=== PATIENT | male | born 1955 | race Caucasian/White ===

== ENCOUNTER 2020-02-01 16:35 | Inpatient (IN) | payer BC, MEDICARE, OTHER ==
[~2020-02-01] VITALS: Ht 182.9 cm; Wt 99.8 kg
[~2020-02-01 16:35] MED LIST: ALEVE220 M1; FUROSEMIDE40 MG PO; LACTULOSE20 GM/30 M PO; LYRICA50 MG PO; SPIRONOLACTONE25 MG PO; ULTRAM50 MG PO; XIFAXAN550 MG PO
--- NOTE | 2020-02-01 16:54 | Emergency Department Note ---
History of Present Illnes History of Present Illness Chief Complaint: Abdominal Complaints History of Present Illness This is a 64 year old male Chief Complaint Comment Patient in from home with complaints of abdominal pain and distension, nausea and vomiting that started this morning. Patient states that he didn't feel well when he woke up this morning but went to work as usual but after drinking water after his shift he began to vomit. Patient reports that after vomiting the pain subsided some. Patient does have a history of abdominal surgery including possible colon rupture with exporatory lap procedure. Patient reports that he believes when he vomited it was stool that came up. Historian: Patient Arrival Mode: Car Clinical Coder Required: No Onset (how long ago): day(s) (1) Location: Abdomen Quality: sharp Radiation: Reports non-radiation Severity: severe Onset quality: gradual Duration (how long): day(s) (1) Timing of current episode: constant Progression: worsening Chronicity: new Context: Denies recent illness, Denies recent surgery Relieving factors: none Exacerbating factors: none Associated symptoms: Reports denies other symptoms Treatments prior to arrival: none (PLACIDO KITCHEN MD) Past Medical/Family History Physician Review I have reviewed the patient's past medical and family history. Any updates have been documented here. (PLACIDO KITCHEN MD) Past Medical History Recent Fever: No Clinical Suspicion of Infectio: No New/Unexplained Change in Ment: No Other Medical History: LIVER DISEASE STAGE 4 Other Surgery: CATARACTS TIPS PROCEDURE 03/2016 (PLACIDO KITCHEN MD) Other Last Tetanus: UNK (PLACIDO KITCHEN MD) Review of Systems Review of Systems Constitutional: Reports no symptoms EENTM: Reports no symptoms Cardiovascular: Reports no symptoms Respiratory: Reports no symptoms Gastrointestinal: Reports as per HPI, Reports abdominal pain, Reports nausea, Reports vomiting Genitourinary: Reports no symptoms Musculoskeletal: Reports no symptoms Integumentary: Reports no symptoms Neurological: Reports no symptoms Psychological: Reports no symptoms Endocrine: Reports no symptoms Hematological/Lymphatic: Reports no symptoms (PLACIDO KITCHEN MD) Physical Exam Related Data Allergies: Coded Allergies: No Known Allergies (Unverified , 03/12/16) Triage Vital Signs Vital Signs Date Time Temp Pulse Resp B/P (MAP) Pulse Ox O2 Delivery O2 Flow Rate FiO2 02/01/20 16:44 98.7 115 20 131/58 100 Room Air Vital signs reviewed: Yes (PLACIDO KITCHEN MD) Physical Exam CONSTITUTIONAL Constitutional: Present well-developed, Present well-nourished HENT HENT: Present normocephalic, Present atraumatic, Present oropharynx clear/moist, Present nose normal HENT L/R: Present left ext ear normal, Present right ext ear normal EYES Eyes: Reports PERRL, Reports conjunctivae normal NECK Neck: Present ROM normal PULMONARY Pulmonary: Present effort normal, Present breath sounds normal CARDIOVASCULAR Cardiovascular: Present regular rhythm, Present heart sounds normal, Present capillary refill normal, Present normal rate GASTROINTESTINAL Abdominal: Present soft, Present distension, Present tender; Absent bowel sounds normal (Hyperactive) GENITOURINARY Genitourinary: Present exam deferred SKIN Skin: Present warm, Present dry MUSCULOSKELETAL Musculoskeletal: Present ROM normal NEUROLOGICAL Neurological: Present alert, Present oriented x 3, Present no gross motor or sensory deficits PSYCHOLOGICAL Psychological: Present mood/affect normal, Present judgement normal (PLACIDO KITCHEN MD) Results Laboratory Laboratory Laboratory Tests Test 02/01/20 16:58 White Blood Count 10.92 x10e3/uL (4.8-10.8) Red Blood Count 3.86 x10e6/uL (4.3-5.7) Hemoglobin 12.9 g/dL (14.0-18.0) Hematocrit 39.2 % (38.2-49.6) Mean Corpuscular Volume 101.6 fL (81-99) Mean Corpuscular Hemoglobin 33.4 pg (28-32) Mean Corpuscular Hemoglobin Concent 32.9 g/dL (31-35) Red Cell Distribution Width 14.2 % (11.7-14.4) Platelet Count 280 x10e3/uL (140-360) Neutrophils (%) (Auto) 81.9 % (38.7-80.0) Lymphocytes (%) (Auto) 10.3 % (18.0-39.1) Monocytes (%) (Auto) 5.7 % (4.4-11.3) Eosinophils (%) (Auto) 0.8 % (0.0-6.0) Basophils (%) (Auto) 0.9 % (0.0-1.0) Neutrophils # (Auto) 8.9 (2.1-6.9) Lymphocytes # (Auto) 1.1 (1.0-3.2) Monocytes # (Auto) 0.6 (0.2-0.8) Eosinophils # (Auto) 0.1 (0.0-0.4) Basophils # (Auto) 0.1 (0.0-0.1) Absolute Immature Granulocyte (auto 0.04 x10e3/uL (0-0.1) Sodium Level 141 mmol/L (136-145) Potassium Level 3.7 mmol/L (3.5-5.1) Chloride Level 104 mmol/L (98-107) Carbon Dioxide Level 24 mmol/L (22-29) Anion Gap 16.7 mmol/L (8-16) Blood Urea Nitrogen 11 mg/dL (7-26) Creatinine 1.48 mg/dL (0.72-1.25) Estimat Glomerular Filtration Rate 48 ML/MIN (60-) BUN/Creatinine Ratio 7 (6-25) Glucose Level 116 mg/dL (74-118) Lactic Acid Level 2.2 mmol/L (0.5-2.0) Calcium Level 9.7 mg/dL (8.4-10.2) Total Bilirubin 2.0 mg/dL (0.2-1.2) Aspartate Amino Transf (AST/SGOT) 46 IU/L (5-34) Alanine Aminotransferase (ALT/SGPT) 21 IU/L (0-55) Alkaline Phosphatase 89 IU/L (40-150) Total Protein 8.1 g/dL (6.5-8.1) Albumin 3.6 g/dL (3.5-5.0) Globulin 4.5 g/dL (2.3-3.5) Albumin/Globulin Ratio 0.8 (0.8-2.0) Lipase 37 U/L (8-78) Lab results reviewed: Yes (DAMI BALTAZAR MD) Imaging Imaging results reviewed: Yes Impressions Procedure: [id number] CT/CT ABDOMEN/PELVIS W Exam Date: 02/01/20 Exam Time: 1800 REPORT STATUS: Signed EXAM: CT Abdomen and Pelvis WITH contrast INDICATION: Abdominal pain and distention. COMPARISON: CT abdomen and pelvis on 10/13/2016. TECHNIQUE: Abdomen and pelvis were scanned utilizing a multidetector helical scanner from the lung base to the pubic symphysis after administration of IV contrast. Coronal and sagittal reformations were obtained. Routine protocol was performed. Scan was performed when during portal venous phase. IV CONTRAST: 100 mL of Isovue 370 ORAL CONTRAST: None COMPLICATIONS: None RADIATION DOSE: Total DLP: 712 mGy*cm Estimated effective dose: (DLP x 0.015 x size factor) mSv CTDIvol has been reviewed. It is below the limits set by the Radiation Protocol Committee (RPC). Dose modulation, iterative reconstruction, and/or weight based adjustment of the mA/kV was utilized to reduce the radiation dose to as low as reasonably achievable. FINDINGS: LINES and TUBES: None. LOWER THORAX: There is round atelectasis of the bilateral lung bases, left more to right. HEPATOBILIARY: The liver is diffuse hypodense compared to the spleen, consistent with diffuse hepatic diffuse hepatic steatosis. No focal hepatic lesions. No biliary ductal dilation. There is stable TIPS stent in place. GALLBLADDER: There are multiple calcified stones in the gallbladder. No wall thickening. SPLEEN: No splenomegaly. There are multifocal calcifications throughout the spleen, likely sequela of prior granulomatous infection. PANCREAS: No focal masses or ductal dilatation. ADRENALS: No adrenal nodules KIDNEYS/URETERS: Kidneys enhance symmetrically. No hydronephrosis. Bilateral renal cysts are unchanged. No stones. GI TRACT: There is circumferential wall thickening of the proximal to mid ascending colon with peripheral fat stranding and small amount of free fluid along the right paracolic gutter. There is short segment of small bowel contained within umbilical hernia with mildly dilated mid to distal small bowel.Appendix is normal. PELVIC ORGANS/BLADDER: There is small amount of dependent free fluid in the pelvis. The remaining structures within the pelvis are within normal limits. LYMPH NODES: No lymphadenopathy. VESSELS: Scattered mild arterial vascular calcifications. PERITONEUM / RETROPERITONEUM: No free air or fluid. BONES: There are degenerative changes in the spine. There is partial fusion of the bilateral sacroiliac joints. SOFT TISSUES: Bowel containing umbilical hernia as described above. IMPRESSION: 1. Short segment of small bowel contained within an umbilical hernia likely resulting in partial obstruction of the mid to distal small bowel. 2. Circumferential wall thickening of the proximal to mid ascending colon with peripheral fat stranding and small amount of free fluid along the right paracolic gutter, extending to the pelvis. This likely represents active inflammatory or infectious colitis. However, gastroenterology consultation is recommended to determine need for colonoscopy to rule out underlying malignancy after active infection/inflammation. 3. Cholelithiasis without evidence of close cystitis. 4. Hepatic steatosis with stable TIPS stent in place. Signed by: Melinda Tijerina MD on 02/01/2020 7:06 PM Dictated By: MELINDA TIJERINA MD 05 Transcribed By: RUBY on 02/01/201905 COPY TO: PLACIDO KITCHEN MD~ (DAMI BALTAZAR MD) Assessment & Plan Medical Decision Making MDM 64-year-old male with past medical history significant for abdominal surgery presents to emergency department for abdominal pain and vomiting. Examination shows postsurgical scars and abdominal distention and tenderness. Differential includes perforation of bowel versus appendicitis versus diverticulitis among others. CT abdomen and pelvis and labs ordered. Handed off to Dr. Baltazar @ 1800 (PLACIDO KITCHEN MD) MDM I SPOKE WITH DR GARCIA, DR Jason CONTE, AND DR DARBY, (DAMI BALTAZAR MD) Assessment & Plan Final Impression: (1) Abdominal pain (PLACIDO KITCHEN MD) Final Impression: (1) Abdominal pain (2) Colitis (3) Umbilical hernia (4) Partial small bowel obstruction (DAMI BALTAZAR MD) Depart Disposition: ADMITTED Last Vital Signs Date Time Temp Pulse Resp B/P (MAP) Pulse Ox O2 Delivery O2 Flow Rate FiO2 02/01/20 16:44 98.7 115 20 131/58 100 Room Air (PLACIDO KITCHEN MD) Home Meds Reported Medications Naproxen Sodium (ALEVE) 220 Mg Capsule, 2 TAB DAILY 09/29/16 Tramadol Hcl (ULTRAM) 50 Mg Tablet, 50 MG PO Q6H PRN for PAIN, TAB 09/29/16 Furosemide (FUROSEMIDE) 40 Mg Tablet, 80 MG PO Daily, #30 TAB 09/29/16 Rifaximin (XIFAXAN) 550 Mg Tablet, TAB PO BID 09/29/16 Pregabalin (LYRICA) 50 Mg Cap, 100 MG PO TID, #30 TAB 09/29/16 Spironolactone (SPIRONOLACTONE) 25 Mg Tablet, 100 MG PO BID, #60 TAB 09/29/16 Lactulose (LACTULOSE) 20 Gm/30 Ml Solution, 30 ML PO Q6H, EACH 09/29/16 PLACIDO KITCHEN MD Feb 01, 2020 16:54 DAMI BALTAZAR MD Feb 01, 2020 19:15
[2020-02-01] MEDS ORDERED: SODIUM CHLORIDE 0.9% 1000ML 1,000 ML IV SCH (17:00)
[2020-02-01] MEDS ORDERED: DIATRIZOATE MEGL/DIATRIZOA SOD 30 ML BTL PO ONE (17:03)
[2020-02-01 17:24] LABS: BASOPHILS # (AUTO) 0.1 (0.0-0.1); BASOPHILS % 0.9 % (0.0-1.0); EOSINOPHILS # (AUTO) 0.1 (0.0-0.4); EOSINOPHILS % 0.8 % (0.0-6.0); HEMATOCRIT 39.2 % (38.2-49.6); HEMOGLOBIN 12.9 g/dL (14.0-18.0); LYMPHOCYTES # (AUTO) 1.1 (1.0-3.2); LYMPHOCYTES % 10.3 % (18.0-39.1); MEAN CORPUSCULAR HEMOGLOBIN 33.4 pg (28-32); MEAN CORPUSCULAR HGB CONC 32.9 g/dL (31-35); MEAN CORPUSCULAR VOLUME 101.6 fL (81-99); MONOCYTES # (AUTO) 0.6 (0.2-0.8); MONOCYTES % 5.7 % (4.4-11.3); NEUTROPHILS # (AUTO) 8.9 (2.1-6.9); NEUTROPHILS % 81.9 % (38.7-80.0); PLATELET COUNT 280 x10e3/uL (140-360); RED BLOOD COUNT 3.86 x10e6/uL (4.3-5.7); RED CELL DISTRIBUTION WIDTH 14.2 % (11.7-14.4)
[2020-02-01] MEDS: ONDANSETRON HCL INJ 2MG/ML 2ML 2 MG/ML VIAL IV PRN (17:32)
[2020-02-01 17:49] LABS: ALBUMIN 3.6 g/dL (3.5-5.0); ALBUMIN/GLOBULIN RATIO 0.8 (0.8-2.0); ANION GAP 16.7 mmol/L (8-16); CALCIUM 9.7 mg/dL (8.4-10.2); CREATININE, SERUM 1.48 mg/dL (0.72-1.25); POTASSIUM 3.7 mmol/L (3.5-5.1)
--- NOTE | 2020-02-01 18:00 | Diagnostic Imaging Report ---
EXAMINATION: CHEST SINGLE (PORTABLE) INDICATION: Abdominal pain COMPARISON: None FINDINGS: TUBES and LINES: None. LUNGS: Normal lung volumes. There is hazy lacelike opacity at the bilateral lung bases, right more left. PLEURA: No pleural effusion or pneumothorax. HEART AND MEDIASTINUM: The cardiomediastinal silhouette is unremarkable. BONES AND SOFT TISSUES: No acute osseous lesion. Soft tissues are unremarkable. UPPER ABDOMEN: No free air under the diaphragm. IMPRESSION: Hazy lacelike opacity at the bilateral lung bases may represent atelectasis and/or multifocal pneumonia in the proper clinical context. Signed by: Santos Wellington MD on 02/01/2020 5:56 PM
[2020-02-01] MEDS ORDERED: PIPERACILLIN/TAZO 4.5 GM 100 ML IV STA (18:04)
[2020-02-01] MEDS ORDERED: IOPAMIDOL 370 MG/ML 200 ML INFUS..BTL INJ ONE (18:06)
[2020-02-01] MEDS ORDERED: SODIUM CHLORIDE 0.9% 50ML 50 ML ONE (18:06)
--- NOTE | 2020-02-01 19:09 | Diagnostic Imaging Report ---
EXAM: CT Abdomen and Pelvis WITH contrast INDICATION: Abdominal pain and distention. COMPARISON: CT abdomen and pelvis on 10/13/2016. TECHNIQUE: Abdomen and pelvis were scanned utilizing a multidetector helical scanner from the lung base to the pubic symphysis after administration of IV contrast. Coronal and sagittal reformations were obtained. Routine protocol was performed. Scan was performed when during portal venous phase. IV CONTRAST: 100 mL of Isovue 370 ORAL CONTRAST: None COMPLICATIONS: None RADIATION DOSE: Total DLP: 712 mGy*cm Estimated effective dose: (DLP x 0.015 x size factor) mSv CTDIvol has been reviewed. It is below the limits set by the Radiation Protocol Committee (RPC). Dose modulation, iterative reconstruction, and/or weight based adjustment of the mA/kV was utilized to reduce the radiation dose to as low as reasonably achievable. FINDINGS: LINES and TUBES: None. LOWER THORAX: There is round atelectasis of the bilateral lung bases, left more to right. HEPATOBILIARY: The liver is diffuse hypodense compared to the spleen, consistent with diffuse hepatic diffuse hepatic steatosis. No focal hepatic lesions. No biliary ductal dilation. There is stable TIPS stent in place. GALLBLADDER: There are multiple calcified stones in the gallbladder. No wall thickening. SPLEEN: No splenomegaly. There are multifocal calcifications throughout the spleen, likely sequela of prior granulomatous infection. PANCREAS: No focal masses or ductal dilatation. ADRENALS: No adrenal nodules KIDNEYS/URETERS: Kidneys enhance symmetrically. No hydronephrosis. Bilateral renal cysts are unchanged. No stones. GI TRACT: There is circumferential wall thickening of the proximal to mid ascending colon with peripheral fat stranding and small amount of free fluid along the right paracolic gutter. There is short segment of small bowel contained within umbilical hernia with mildly dilated mid to distal small bowel.Appendix is normal. PELVIC ORGANS/BLADDER: There is small amount of dependent free fluid in the pelvis. The remaining structures within the pelvis are within normal limits. LYMPH NODES: No lymphadenopathy. VESSELS: Scattered mild arterial vascular calcifications. PERITONEUM / RETROPERITONEUM: No free air or fluid. BONES: There are degenerative changes in the spine. There is partial fusion of the bilateral sacroiliac joints. SOFT TISSUES: Bowel containing umbilical hernia as described above. IMPRESSION: 1. Short segment of small bowel contained within an umbilical hernia likely resulting in partial obstruction of the mid to distal small bowel. 2. Circumferential wall thickening of the proximal to mid ascending colon with peripheral fat stranding and small amount of free fluid along the right paracolic gutter, extending to the pelvis. This likely represents active inflammatory or infectious colitis. However, gastroenterology consultation is recommended to determine need for colonoscopy to rule out underlying malignancy after active infection/inflammation. 3. Cholelithiasis without evidence of close cystitis. 4. Hepatic steatosis with stable TIPS stent in place. Signed by: Santos Wellington MD on 02/01/2020 7:06 PM
--- OUTSIDE RECORDS SUMMARY | 2020-02-01 19:33 | XMS REPORT | Continuity of Care Document ---
Author Author [facility] t Organization [facility] Address [address] [place] [address] Phone Unavailable Care Team Providers Care Zipper Setter Name Role Phone Asked, Pcp No PCP Unavailable Vince Perera Attphys Unavailable Raphael VILLAREAL, Madyson Attphys Unavailable Kaylin TILLMAN, Donald Manuel Attphys Jhon TILLMAN, Leo Attphys Eva TILLMAN, Shannan Wallace Attphys [phone] Kian PERERA, Maureen Attphys Unavailable Re WEIGHER AND MIXER, Shanique Attphys Unavailable Chiara Delacruz Attphys Unavailable Niki PERERA, Franny Attphys Unavailable BENJI BROWN Attphys Unavailable TRAVIS, DR JULIANA BAH Attphys Unavailable KEVINBENJI Admphys Unavailable WOODY, DR JULIANA BAH Admphys Unavailable RADHA, SONIA Admphys Unavailable Payers Payer Name Policy Type Policy Number Effective Date Expiration Date S [place] [employer] TRANSPLANT MEDICAREOPTUM [place] MEDIC ARE [id number] 2018-PresentTransplant [id number] 2018 00:0 0:00 Kd Umaña [facility] [id number] HMO [id number] 2017 00:00:00 Kd Umaña Problems Condition Name Condition Details Condition Category Status Onset Date Resolution Date Last Treatment Date Treating Clinician Comments Source Viral gastroenteritis Viral gastroenteritis Problem Active 201 11-27-01 00:00:00 LAURA Christinaridarshan (LUF/SAWYER/SA) Awaiting liver transplant Awaiting liver transplant Disease Ac tive 2016-09-03 00:00:[address] S/P TIPS (transjugular intrahepatic portosystemic shun t) 04/08/16 S/P TIPS (transjugular intrahepatic portosystemic shunt) 04/08/16 Disease Act hebert 2016-05-07 00:00:00 Kd Umaña Ascites Ascites Problem Active 2016-02-28 00:00:00 [facility] (LUF/SAWYER/SA) Portal hypertension Portal hypertension Disease Active 2015-12-16 00:00 :00 Kd Umaña Protein calorie malnutrition Protein calorie malnutrition Disease Active 2015-12-16 00:00:00 Kd Umaña Peripheral neuropathy Peripheral neuropathy Disease Active 201 10-01-21 00:00:00 Kd Manriquez t Hepatic cirrhosis due to chronic hepatitis C infection Hepatic cirrhosis due to chronic hepatitis C infection Disease Active 2015-12-02 00:00:00 Kd Umaña Ascites Ascites Disease Active 2015-12-02 00:00:00 Kd Umaña Abnormal CXR Abnormal CXR Problem Active [facility] 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 Family History Family Member Diagnosis Comments Start Date Stop Date Source Paternal aunt Cancer Kd garcia Social History Social Habit Start Date Stop Date Quantity Comments Source History of tobacco use Cigarette Smoker Kd Umaña Sex Assigned At Nenita Umaña Cigarettes smoked current (pack per day) - Reported 00:00:00 2019-11-16 00:00:00 Kd Umaña Tobacco use and exposure 2019-11-16 00:00:00 2019-11-16 00:00:00 Cristiankaran norman used Kd Umaña Alcohol intake 2019-11-16 00:00:00 2019-11-16 00:00:00 Current non-drinker of alcohol (finding) dK Umaña Tobacco Comment 2015-12-02 00:00:00 2015-12-02 00:00:00 started as a teen Kd Umaña Smoking Status Start Date Stop Date Source Current every day smoker 2019-11-16 00:00:00 Nenita Umaña Medications Ordered Medication Name Filled Medication Name Start Date Stop Da te Current Medication? Ordering Clinician Indication Dosage Frequency Signature (SIG) Comments Components Source pregabalin (Lyrica) 50 MG capsule 2019-11-17 00:00:00 2020 23:59:00 Yes Neuropathy 50mg Q.5D Take 1 capsule ( 50 mg total) by mouth 2 (two) times a day. Kd Umaña carvediloL (COREG) 6.25 MG tablet 2019-11-16 14:34:44 Yes 6.25mg Q.5D Take 6.25 mg by mouth 2 (two) times a day with meals. Kd Umaña lactulose 10 gram/15 mL (15 mL) solution 2019-11-16 14:34:43 Yes 20g Q.[id number] Take 20 g by mouth 3 (three) times a day. Kd Umaña varenicline (CHANTIX) 1 mg tablet 2019-11-16 14:34:31 2019 00:00:00 No 1mg Q.5D Take 1 mg by gavi th 2 (two) times a day. Take with full glass of water. Kd Umaña pregabalin (Lyrica) 50 MG capsule 2019-11-16 00:00:00 2019 00:00:00 No Neuropathy 50mg Q.5D Take 1 capsule (50 mg total) by mouth 2 (two) times a day. Kd Umaña ACETAMINOPHEN (TYLENOL EXTRA STRENGTH ORAL) 2017-10-21 15:29:06 Yes Take by mouth. Kd Umaña amLODIPine (NORVASC) 2.5 mg tablet 2017-10-19 00:00:00 Yes 2.5mg QD 2.5 mg daily. Kd Umaña losartan (COZAAR) 25 MG tablet 2017-10-19 00:00:00 Yes 25mg QD 25 mg daily. Kd Umaña Gabapentin Gabapentin Yes Reji Kelli 1 capsule [facility] Coreg Coreg Yes Reji Kelli 1 tablet C [facility] Losartan Potassium Losartan Potassium Yes Reji Kelli 1 tablet [facility] duloxetine 30 MG Delayed Release Oral Capsule duloxeti ne 30 MG Delayed Release Oral Capsule Yes 30mg QD [facility] (LUF/SAWYER/SA) Furosemide 40 MG Oral Tablet Furosemide 40 MG Oral Tablet Yes 40mg QD [facility] ([facility]/) Ondansetron Ondansetron Yes 4mg QID C [facility] ([facility]/) pregabalin 150 MG Oral Capsule pregabalin 150 MG Oral Capsule Yes 150mg BID [facility] ([facility] rifaximin 550 MG Oral Tablet rifaximin 550 MG Oral Tablet Y es 550mg BID [facility] Spironolactone 100 MG Oral Tablet Spironolactone 100 MG Oral Tablet Yes 100mg [facility] ([facility] varenicline 1 MG Oral Tablet varenicline 1 MG Oral Tablet Yes 1mg BID [facility] ([facility]) Immunizations Ordered Immunization Name Filled Immunization Name Date Status Comments Source Seasonal, trivalent, recombinant, inject able influenza vaccine, preservative free Seasonal, trivalent, recombinant, inject able influenza vaccine, preservative free 2017-02-09 00:00:[address] [facility] ([facility]) Vital Signs Vital Name Observation Time Observation Value Comments Source Systolic blood pressure 2019-11-16 14:00:00 173 mm[Hg] Kd Umaña Diastolic blood pressure 2019-11-16 14:00:00 71 mm[Hg] Kd Umaña Heart rate 2019-11-16 14:00:00 80 /min Kd Umaña Body temperature 2019-11-16 14:00:00 35.94 Larisa Kana juliocesar Hinduism Respiratory rate 2019-11-16 14:00:00 18 /min Kana juliocesar Hinduism Body height 2019-11-16 14:00:00 182.9 cm Kd Umaña Body weight 2019-11-16 14:00:00 100.2 kg Kd Umaña BMI 2019-11-16 14:00:00 29.96 kg/m2 Kd Umaña Oxygen saturation in Arterial blood by Pulse oximetry 11-15 14:00:00 97 /min Kd Umaña BP Systolic 2017-07-26 18:27:00 177 mm[Hg] [facility] ([facility]/) BP Diastolic 2017-07-26 18:27:00 86 mm[Hg] [facility] (LUF/SAWYER/SA) Body Temperature 2017-07-26 14:46:00 98 F [facility] (LUF/[place]WYER/SA) Respiratory Rate 2017-07-26 14:46:00 20 /min [facility] (LUF/[place]WYER/SA) O2% BldC Oximetry 2017-07-26 14:46:00 97 % [facility] (LUF/[place]WYER/SA) Height 2017-07-26 14:46:00 72 in [facility] (LUF/SAWYER/SA) Weight Measured 2017-07-26 14:46:[address] [facility] Nahum lopez [facility] (LUF/[place]WYER/SA) BMI (Body Mass Index) 2017-07-26 14:46:00 26.2 [facility] (LUF/SAWYER/SA) Body Temperature 2017-04-11 21:00:00 98 F [facility] (LUF/SAWYER/SA) Respiratory Rate 2017-04-11 21:00:00 20 /min [facility] (LUF/[place]WYER/SA) O2% BldC Oximetry 2017-04-11 21:00:00 98 % [facility] (LUF/SAWYER/SA) BP Systolic 2017-04-11 21:00:00 174 mm[Hg] [facility] (LUF/[place]WYER/SA) BP Diastolic 2017-04-11 21:00:00 80 mm[Hg] [facility] (LUF/[place]WYER/SA) Height 2017-04-11 16:52:00 72 in [facility] (LUF/SAWYER/SA) Weight Measured 2017-04-11 16:52:[address] [facility] Nahum [facility] (LUF/SAWYER/SA) BMI (Body Mass Index) 2017-04-11 16:52:00 24.6 [facility] (LUF/SAWYER/SA) Procedures Procedure Date / Time Performed Performing Clinician [facility] e MRI ABDOMEN W WO CONTRAST 2019-11-16 13:35:00 Kaleb Ewing TTE COMPLETE, WO CONTRAST, W AGITATED SALINE ([id number]) 2019-10 12:12:00 Fartun Cook Kd Umaña BASIC METABOLIC PANEL 2019-11-16 09:30:00 EgwiKaleb roque IJeremias Umaña HEPATIC FUNCTION PANEL 2019-11-16 09:30:00 Kaleb Ewing I. Willian Umaña PROTHROMBIN TIME WITH INR 2019-11-16 09:30:00 EgKaleb gupta Hinduism PARTIAL THROMBOPLASTIN TIME (PTT) 2019-11-16 09:30:00 EgSrini gupta Hinduism HC COMPLETE BLD COUNT W/AUTO DIFF 2019-11-16 09:30:00 EgSrini gupta Hinduism ALPHA FETOPROTEIN 2019-11-16 09:30:00 Kaleb Ewing Hinduism MAGNESIUM LEVEL 2019-11-16 09:30:00 Kaleb Ewing ethodist PHOSPHORUS LEVEL 2019-11-16 09:30:00 Kaleb Ewing I. Kd Umaña ESTIMATED GFR 2019-11-16 09:30:00 EgKaleb gupta ethodist MRI ABDOMEN W WO CONTRAST 2019-06-05 19:30:00 Kaleb Ewing Hinduism TTE COMPLETE, WO CONTRAST, W DOPPLER ([id number]) 2019-05-25 15:0 0:00 Leo Rothman MRI ABDOMEN W WO CONTRAST 2019-05-25 12:00:00 Leo Rothman POC CREATININE 2019-05-25 10:57:00 Leo Rothman ethodist ESTIMATED GFR 2019-05-25 10:57:00 Leo Rothman ethodist BASIC METABOLIC PANEL 2019-05-25 09:50:00 Leo Rothman HEPATIC FUNCTION PANEL 2019-05-25 09:50:00 Leo Rothman PROTHROMBIN TIME WITH INR 2019-05-25 09:50:00 Leo Rothman PARTIAL THROMBOPLASTIN TIME (PTT) 2019-05-25 09:50:00 Leo Rothman HC COMPLETE BLD COUNT W/AUTO DIFF 2019-05-25 09:50:00 Leo Rothman ALPHA FETOPROTEIN 2019-05-25 09:50:00 Leo Rothman MAGNESIUM LEVEL 2019-05-25 09:50:00 Leo Rothman ethodist PHOSPHORUS LEVEL 2019-05-25 09:50:00 Leo Rothman ESTIMATED GFR 2019-05-25 09:50:00 Leo Rothman ethodist BASIC METABOLIC PANEL 2019-03-28 00:00:00 Leo Rothman HEPATIC FUNCTION PANEL 2019-03-28 00:00:00 Leo Rothman PROTHROMBIN TIME WITH INR 2019-03-28 00:00:00 Leo Rothman PARTIAL THROMBOPLASTIN TIME (PTT) 2019-03-28 00:00:00 Leo Rothman CBC WITH PLATELET AND DIFFERENTIAL 2019-03-28 00:00:00 Leo Penn Procedure on colon [facility] ([facility]/SA) TREAT HUMERUS FRACTURE [facility] ([facility]) Plan of Care Planned Activity Planned Date Details Comments Source Future Scheduled Test 2019-11-25 00:00:00 INFLUENZA VACCINE [code = INFLUENZA VACCINE] Kd Umaña Future Scheduled Test 2006 00:00:00 COLONOSCOPY SCREEN ING [code = COLONOSCOPY SCREENING] Kd Umaña Future Scheduled Test 2006 00:00:00 SHINGLES VACCINES (#1) [code = SHINGLES VACCINES (#1)] Kd Umaña Encounters Start Date/Time End Date/Time Encounter Type Admission Type Att[facility] Care Department Encounter ID Source 2019-11-16 00:00:00 2019-11-16 00:00:00 Outpatient JOYCE EWING MA [facility] [id number] Kd Umaña 2019-11-16 00:00:00 2019-11-16 00:00:00 Outpatient Sukhdev ROTHMAN [facility] [id number] Kd Umaña 2019-11-16 00:00:00 2019-11-16 00:00:00 Outpatient TOYA COOK [facility] [id number] [facility] 2019-11-16 00:00:00 2019-11-16 00:00:00 Outpatient JOYCE EWING MA [facility] [id number] [facility] 2019-06-05 00:00:00 2019-06-05 00:00:00 Outpatient JOYCE EWING MA [facility] [id number] [facility] 2019-05-25 00:00:00 2019-05-25 00:00:00 Outpatient ANKOMA-SEY, V ICTOR [facility] [id number] [facility] 2019-05-25 00:00:00 2019-05-25 00:00:00 Outpatient ANKOMA-SEY, V ICTOR [facility] [id number] [facility] 2019-03-30 13:06:00 2019-03-30 13:06:00 Outpatient [facility] ty [place] [id number] [facility]-03-29 12:25:00 2019-03-29 12:25:00 Outpatient [facility] [id number] [facility] 2019-03-28 10:30:00 2019-03-28 10:30:00 Outpatient [facility] ty [place] [id number] [facility] 2017-08-05 13:49:00 2017-08-05 23:59:00 PAIN IN LEFT UPPER ARM 3 AMBEROLVIN Lacy JULIANA [facility], [address] [place] [address] [facility] [phone] [facility] (LUF/[place]YER/SA) 2017-07-26 14:37:00 2017-07-26 20:55:00 VIRAL INTESTINAL INFECTION UNSPEC 1 RADHASONIA JJ [facility], [address], [place], [place] [address] [facility] [id number] [facility] (LUF /[place]/SA) 2017-04-11 16:35:00 2017-04-11 21:40:00 UNS FX SHFT HUM LT ARM INIT CLOS FX E SONIA GARCIA [facility], [address] [facility] [place], [place] [address] [facility] [id number] [facility] (LUF /[place]WYER/SA) Results Test Description Test Time Test Comments Results Result Comments Source CT ABDOMEN/PELVIS W 2020-02-01 18:40:00 [facility] [address] [address] Patient Name: STEPH PINK MR #: [id number] : 1955 Age/Sex: 64/M Req #: [id number] Adm Physician: Ordered by: Placido Perera MD Report #: [id number] Location: ER Room/Bed: Procedure: [id number] CT/CT ABDOMEN/PELVIS W Exam Date: 02/01/20 Exam Time: 1800 REPORT STATUS: Signed EXAM: CT Abdomen and Pelvis WITH contrast INDICATION: Abdominal pain and distention. COMPARISON: CT abdomen and pelvis on 10/13/2016. TECHNIQUE: Abdomen and pelvis were scanned utilizing a multidetector helical scanner from the lung base to the pubic symphysis after administration of IV contrast. Coronal and sagittal reformations were obtained. Routine protocol was performed. Scan was performed when during portal venous phase. IV CONTRAST: 100 mL of Isovue 370 ORAL CONTRAST: None COMPLICATIONS: None RADIATION DOSE: Total DLP: 712 mGy*cm Estimated effective dose: (DLP x 0.015 x size factor) mSv CTDIvol has been reviewed. It is below the limits set by the Radiation Protocol Committee (RPC). Dose modulation, iterative reconstruction, and/or weight based adjustment of the mA/kV was utilized to reduce the radiation dose to as low as reasonably achievable. FINDINGS: LINES and TUBES: None. LOWER THORAX: There is round atelectasis of the bilateral lung bases, left more to right. HEPATOBILIARY: The liver is diffuse hypodense compared to the spleen, consistent with diffuse hepatic diffuse hepatic steatosis. No focal hepatic lesions. No biliary ductal dilation. There is stable TIPS stent in place. GALLBLADDER: There are multiple calcified stones in the gallbladder. No wall thickening. SPLEEN: No splenomegaly. There are multifocal calcifications throughout the spleen, likely sequela of prior granulomatous infection. PANCREAS: No focal masses or ductal dilatation. ADRENALS: No adrenal nodules KIDNEYS/URETERS: Kidneys enhance symmetrically. No hydronephrosis. Bilateral renal cysts are unchanged. No stones. GI TRACT: There is circumferential wall thickening of the proximal to mid ascending colon with peripheral fat stranding and small amount of free fluid along the right paracolic gutter. There is short segment of small bowel contained within umbilical hernia with mildly dilated mid to distal small bowel.Appendix is normal. PELVIC ORGANS/BLADDER: There is small amount of dependent free fluid in the pelvis. The remaining structures within the pelvis are within normal limits. LYMPH NODES: No lymphadenopathy. VESSELS: Scattered mild arterial vascular calcifications. PERITONEUM / RETROPERITONEUM: No free air or fluid. BONES: There are degenerative changes in the spine. There is partial fusion of the bilateral sacroiliac joints. SOFT TISSUES: Bowel containing umbilical hernia as described above. IMPRESSION: 1. Short segment of small bowel contained within an umbilical hernia likely resulting in partial obstruction of the mid to distal small bowel. 2. Circumferential wall thickening of the proximal to mid ascending colon with peripheral fat stranding and small amount of free fluid along the right paracolic gutter, extending to the pelvis. This likely represents active inflammatory or infectious colitis. However, gastroenterology consultation is recommended to determine need for colonoscopy to rule out underlying malignancy after active infection/inflammation. 3. Cholelithiasis without evidence of close cystitis. 4. Hepatic steatosis with stable TIPS stent in place. Signed by: Melinda Tijerina MD on 02/01/2020 7:06 PM Dictated By: MELINDA TIJERINA MD 05 Transcribed By: RUBY on 02/01/201905 COPY TO: PLACIDO PERERA MD CHEST SINGLE (PORTABLE) 2020-02-01 17:50:[address] [address] Patient Name: STEPH PINK MR #: [id number] : 1955 Age/Sex: 64/M Req #: [id number] Adm Physician: Ordered by: Placido Perera MD Report #: [id number] Location: ER Room/Bed: Procedure: [id number] DX/CHEST SINGLE (PORTABLE) Exam Date: 02/01/20 Exam Time: 1720 REPORT STATUS: Signed EXAMINATION: CHEST SINGLE (PORTABLE) INDICATION: Abdominal pain COMPARISON: None FINDINGS: TUBES and LINES: None. LUNGS: Normal lung volumes. There is hazy lacelike opacity at the bilateral lung bases, right more left. PLEURA: No pleural effusion or pneumothorax. HEART AND MEDIASTINUM: The cardiomediastinal silhouette is unremarkable. BONES AND SOFT TISSUES: No acute osseous lesion. Soft tissues are unremarkable. UPPER ABDOMEN: No free air under the diaphragm. IMPRESSION: Hazy lacelike opacity at the bilateral lung bases may represent atelectasis and/or multifocal pneumonia in the proper clinical context. Signed by: Melinda Tijerina MD on 02/01/2020 5:56 PM Dictated By: MELINDA TIJERINA MD 55 Transcribed By: RUBY on 02/01/201755 COPY TO: PLACIDO PERERA MD Transthoracic Echocardiogram Complete, (w Contrast, St rain and 3D if needed) 2019-11-17 12:09:00 Interface, Radiology Results In - 11/17/2019 12:09 PM CDT Echocardiography Report [address] [address] Pat.Name: STEPH PINK Pat.ID: [id number] .Date: 11/16/2019 Refer.MD: FARTUN COOK MD Exam Time: 10:44:00 AM Study Type:Routine Echo Height: 72in Weight: 220lb BSA: 2.22 m2 Age: 4 1955,64Y Sex: MALE BP: 172/75 HR: 71 bpm Sonogrphr: RAGHAVENDRA Aragon, RVS Pat. Stat.:Outpatient Room: [facility] Study Status:Final Echo Event ID:[id number] Order ID: [id number] Reason for Study:Pre-Liver TransplantHistory / Clinical:Cirrhosis Procedures: 2D Echo, Colorflow Doppler, Strain, Intravenous SalineContrastRace: C SUMMARY: LV EF is normal. Estimated EF is 65-69%RV systolic function is normal.No intracardiac shunt detected.Normal diastolic function adjusted for age; normal LV fillingpressures.Estimated PA systolic pressure is 30 mmHg, assuming a mean RAP of 5mmHg. FINDINGS: LV: LV size is normal. There is mild eccentric LV hypertrophy. LV EF is normal. Overall wall motion is normal. Estimated EF is 65-69%RV: RV size is normal. RV systolic function is normal.LA: LA volume is severely enlarged.RA: RA size is normal.AO: Aortic root diameter is normal.LIMA: No pericardial effusion.Cntrst: No intracardiac shunt detected.AV: No structural AV abnormalities noted.MV: No structural MV abnormalities noted. Mild mitral regurgitation. PV: No structural PV abnormalities noted.TV: No structural TV abnormalities noted. A trace of tricuspid regurgitation Lee: Normal diastolic function adjusted for age; normal LV filling pressures.Other: Estimated PA systolic pressure is 30 mmHg, assuming a mean RAP of 5 mmHg. MEASUREMENTS: 2DParasternal Long [place] Ao An 2.5 cm LVPWd 1 cm Ao Rtd 3.3 cm Index 1.5 cm/m2 LA Ds 5.7 cm IVSd 1.2 cm RWT 0.35 LVIDd 5.9 cm Index 2.6 cm/m2 LV Mass 272 g (122-174)* LVIDs 3.6 cm LVM Index 123 g/m2 LV%fs 39 % LVOT 2.3 cm LA Sng Plane LA Area 31 cm2 (8.8- 23.4)* LA Vol 117 ml Index 53 ml/m2 LA LngAx 6.9 cm RA Sng Plane RA Vol 75 ml Index 34 ml/m2 RA LngAx 6.6 cm RA Area 24 cm2 (8.3-19.5)*LVOT LVOT Area 4 cm2 DOPPLERLVOT Stroke Vol & Cardiac Out LVOT TVI 26 cm HR 76 bpm LVOT LVOT SV 108 ml LVOT CO 8.2 l/min SVi 49 ml/m2 LVOT CI 3.7 l/m/m2IVRT IVRT 83 msec Signed 11/17/2019 12:09 PMMoMD Kd Warern Hinduism MRI Abdomen W Wo Contrast 2019-11-16 14:11:44 Interface, Radiology Results 11/16/2019 2:14 PM CDTEXAMINATION: MRI ABDOMEN W WO CONTRASTCLINICAL HISTORY: Z76.82 Awaiting organ transplant status, B18.2 Chronic viral hepatitis C, HCC ScreenTECHNIQUE: Multiplanar multisequence MR images of the abdomen were obtained pre- and post dynamic intravenous administration of Gadolinium.COMPARISON: None.FINDINGS:1.The liver is cirrhotic and demonstrates diffuse hepatic steatosis. 6 mm ill-defined focus of hyperenhancement (series 6 image 138) without delayed washout, intrinsic T1 or T2 signal abnormality, or diffusion restriction may represent a small vascular shunt. Attention on follow-up imaging is recommended. There is no suspicious liver mass.2.A TIPS stent is patent. The portal, splenic, and superior mesenteric veins are patent.3.The spleen, pancreas, and adrenals are normal.4.There are several stones in the gallbladder.5.Several benign bilateral renal cysts are present. This includes a hemorrhagic or proteinaceous 2.5 cm right renal cyst. There is no hydronephrosis.6.The stomach and imaged bowel loops are unremarkable. A ventral midline abdominal hernia contains a few retained but unobstructed small bowel loops.7.There is trace ascites.8.Chronic rounded atelectasis in the left lower lobe and trace left pleural fluid, and mild chronic atelectasis or scarring in the right lower lobe, are again noted.9.There is no aortic ectasia or aneurysm.10.No significant marrow abnormality is seen.IMPRESSION: No evidence of HCC. Subcentimeter nonspecific hypervascular focus in the right hepatic lobe may be a benign perfusion anomaly and can be followed. Technically LI RADS category 3.[id number] [facility] Echocardiogram complete w contrast and 3D if needed 2019-05-27 2 3:03:00 Interface, Radiology Results In - 05/27/2019 11:03 PM [facility] Echocardiography Report [id number]Name: STEPH PINK Pat.ID: [id number] .Date: 05/25/2019 Exam Time: 2:09:00 PM Study Type:Routine Echo Height: 72in Weight: 220lb BSA: 2.22 m2 Age: 4 1955,63Y Sex: MALE BP: 181/78 HR: 77 bpm Sonogrphr: RAGHAVENDRA Garcia Pat. Stat.:Outpatient Room: [facility] 26 Study Status:Final Echo Event ID:[id number] Order ID: [id number] Reason for Study:PRE LIVER EVAL History / Clinical:Cirrhosis Procedures: 2D Echo, Colorflow Doppler, Intravenous Saline ContrastRace: C SUMMARY: LV EF is normal.Estimated EF is 65-69%RV systolic function is normal. --------FINDINGS: LV: LV size is normal. There is mild concentric LV hypertrophy. LV EF is normal. Overall wall motion is normal. Estimated EF is 65-69%RV: RV size is normal. RV systolic function is normal.LA: LA volume is moderately enlarged.RA: RA size is normal.AO: Aortic root diameter is normal.LIMA: No pericardial effusion.Cntrst: No intracardiac shunt detected.AV: No structural AV abnormalities noted.MV: Focal calcification of mitral leaflets. Mild mitral regurgitation. PV: No structural PV abnormalities noted.TV: No structural TV abnormalities noted.Other: Insufficient TR jet to estimate PA systolic pressure. MEASUREMENTS:--------- 2DParasternal Long [place] Ao An 1.5 cm LVPWd 1.3 cm Ao Rtd 3.1 cm Index 1.4 cm/m2 LA Ds 4.8 cm IVSd 1.1 cm RWT 0.47 LVIDd 5.5 cm Index 2.5 cm/m2 LV Mass 272 g (122-174) LVIDs 3.4 cm LVM Index 123 g/m2 LV%fs 38 % LA Sng Plane LA Area 27 cm2 (8.8-23.4) LA Vol 100 ml Index 45 ml/m2 LA LngAx 5.9 cm LVOT Stroke Vol LVOT 2 cm LVOT LVOT Area 3.1 cm2 DOPPLERLVOT Stroke Vol LVOT TVI 32 cm LVOT CI 3.5 l/m/m2 LVOT SV 100 ml HR 77 bpm LVOT CO 7.7 l/min LVOT SVi 45 ml/m2 Signed 05/27/2019 11:03 Víctor Campos M.D. Kd Umaña POC creatinine 2019-05-25 11:00:18 Test Item POC creatinine (test code = 04067-5) 1.1 mg/dl 0.7-1.2 Reconditioner Name: Nataliya Helmice ID: [id number] Kd UmañaXR CHEST 2 PA [id number] 11:36:47PA and lateral chest:History: Persistent coughThere are no prior chest films for comparison. There is a vaguely definedrounded opacity in the left base along the cardiac margin. It appears to projectposteriorly on the lateral view. Review of prior CT scan from 2018 showsbilateral pleural effusions and this structure may be of pleural origin.Diagnostic considerations include rounded atelectasis, loculated effusion andlung mass. Followup chest CT is recommended. There is limit edatelectasis/scarring in the right lung base. Mild pleural thickening is presen ton the lower lateral chest wall and the costophrenic angles.Cardiac size is wit hin normal limits. No vascular congestion is noted. The bonythorax appears intac t.Impression:1. Faintly defined opacity in the left lung base projects posterior ly on thelateral view and could be of pleural or parenchymal origin. Followup est CT isrecommended.2. Limited basilar pleural thickening and right basilar ate lectasis/scarring.This final report was electronically signed by Dr Darvin eldridge MD 03/20/201911:30 AMDictated By: DARVIN CAVANAUGHDate: 03/20/2019 11:30MRI UPPER ARM W/O [id number] 14:34:34"If patient is claustrophobic, contact ordering ysician for additional instructions."MRI of the left arm without contrast:History: FractureMultiple magnetic resonance imaging of the left arm was performed withoutcontrast.There is a transverse fracture of the midshaft humerus. There is apex lateralangulation at the fracture site with approximately 1/2 shaft width medialdisplacement of the distal fragment. There is associated marrow edema along bothends of the fracture. Soft tissue signal likely representing callus formation isnoted particularly along the medial and posterior aspect of the fracture and toa lesser extent anteriorly. No sign ificant callus is visualized laterally. Thereis some residual edema in the muscu lature posterior to the fracture. Fluidsignal is noted between the ends of the f racture.Incidental note is made of a left pleural effusion. This was noted on re cent CTscan of July 26, 2017.Impression: Angulated fracture of the midshaft hum erus with changes of earlyhealing as noted. A left pleural effusion is incidenta lly again noted.This final report was electronically signed by Dr Darvin peña MD 08/06/20172:28 PMDictated By: DARVIN CAVANAUGHDate: 08/06/2017 14:34CT ABDOMEN/PELVIS W/O [id number] 20:20:52NPO 4 hours. Do not withhold meds Procedure: CT ABDOMEN/PELVIS W/O CONTRASTExam Date: 07/26/2017Ordering Provider: DEEPA STERLINGClinical Indication: abd pain, nausea and vomitingTECHNIQUE: 5 mm collimation axial images obtained from the diaphragm to thelevel of the pubic symphysis without nonionic intravenous contrast.RADIATION DOSE:Total DLP: 945 m Gy*cmEstimated effective dose: (DLP x 0.015 x size factor) mSvCTDIvol has been r eviewed. It is below the limits set by the RadiationProtocol Committee (RPC).COM PARISON: Abdominal ultrasound 02/28/16.ABDOMEN FINDINGS:Lung Bases: Posterior lay ering pleural effusions measure 5.7 cm on the rightatrium 0.7 cm on the left. Th ere is mild prominence of the parietal pleurasuggestive of chronicity. There is bibasilar atelectasis. Calcified granulomataare present in the right hilum and r ight lung base. The heart is normal in size.Right cardiophrenic lymph nodes are prominent, measuring up to 19 mm..Liver: A TIPS shunt is present. The liver is d ecreased in attenuation. Calcifiedgranulomata are present. The capsule is lobula red consistent with cirrhosis. Noevidence of mass on this unenhanced exam.Gallbl adder: Present contains multiple calcified gallstones measuring up to 10mm.. No ductal dilatation.Pancreas: Normal attenuation without mass.Spleen: Measures 13 cm in length and contains multiple calcified granulomata.Adrenal Glands: No ruth dence for mass.Kidneys:Right Kidney: No hydronephrosis. A cyst in the hilum caden sures 2.3 cm. A cyst inthe posterior upper pole measures 3 cm.. No hydronephros is. No calculi.Left Kidney: No renal calculus. No cortical mass or hydronephro sis.Lymph Nodes: Periportal lymph nodes measure up to 10 mm. Shotty periaortic l ymphnodes measure less than 10 mm.No free fluid or fluid collection.PELVIS FINDI NGS:Bowel: Small Bowel: Normal in caliber with normal wall thickness.Large Bowel : High attenuating material in the right colon could be barium ormedication. No large bowel dilatation or mural thickening..Appendix: Present and is normal.Blad omar: Circumferential mural thickening is present. No ureteral dilatation.Prostat e gland is mildly enlarged with central calcifications.Lymph Nodes: No enlarged mesenteric, pelvic, or inguinal lymph nodes.No free fluid or fluid collection.Richard che: There are moderate degenerative changes of the spine without compressionfra cture or listhesis. There are no lytic or blastic lesions.Soft tissues: Unremark able.IMPRESSION:1. Cirrhosis and TIPS. No splenomegaly or ascites. Decreased attenuation ofthe liver is suggestive of steatosis.2. Moderate sized bilateral pleural effusions and bibasilar atelectasis. Thesepleural effusions may be chron ic.3. Healed granulomatous inflammation.4. No evidence of bowel obstruction or i nflammation.5. Diffuse bladder wall thickening suggestive of chronic outlet obst ruction fromprostate hypertrophy.6. Cholelithiasis. No biliary ductal dilatation .7. Right renal cysts. No obstructive uropathy.This final report was electronic ally signed by Dr Vicky Sanchez MD 07/26/20178:14 PMDictated By: ESTRELLA SANCHEZ IADate: 07/26/2017 20:20URINALYSIS WITH [id number] 17:46:00* Test Item Value Reference Range Interpretation Comments Color (test code = UCOLR) Yellow Clarity (test code = UCLAR) Clear Glucose (test code = UGLUC) NEGATIVE NEGATIVE N Bilirubin (test code = UBILI) SMALL NEGATIVE A Ketones (test code = UKET) TRACE NEGATIVE A Specific [place] (test code = USPGR) >=1.030 1.005-1.030 A Blood (test code = UBLD) LARGE NEGATIVE A PH (test code = UPH) 6.0 4.5-8.0 A Protein (test code = UPROT) 30 NEGATIVE A Urobilinogen (test code = U UROB) 0.2 >0.2 N Nitrite (test code = UNITR) NEGATIVE NEGATIVE N Leukocyte Esterase (test code = ULEUK) NEGATIVE NEGATIVE N WBC (test code = WBCUR) 0-3 0-5 A RBC (test code = RBCUR) 60-75 0-5 A Epithial Cells (test code = U EPI) 0-3 0-10 A Mucous (test code = UMUC) Trace None Seen A Bacteria (test code = UBACT) Trace None Seen,Trace N Crystals Urine (test code = URCRYS) Trace Amorphous Sediment None S een A Urine Casts (test code = UR CAST) Few Hyaline Casts None Seen A Urine Misc (test code = UR MISC) Few Yeast None Seen A LIPASE, [id number] 15:53:00* Test Item Value Reference Range Interpretation Comments Lipase (test code = LIPA) 116 U/L 8-223 [id number] 15:53:00* Test Item Value Reference Range Interpretation Comments Glucose (test code = GLU) 101 mg/dl 75-110 BUN (test code = BUN) 12.0 mg/dl 6.0-17.0 Creatinine (test code = CREA) 0.9 mg/dl 0.4-1.2 Sodium (test code = NA) 147 mmol/l 137-145 H Potassium (test code = K) 4.3 mmol/l 3.5-5.0 Chloride (test code = CL) 104 mmol/l 98-107 CO2 (test code = CO2) 31 mmol/l 22-30 H Calcium (test code = CALC) 9.9 mg/dl 8.4-10.2 T Protein (test code = TP) 9.2 gm/dl 5.1-8.7 H Albumin (test code = ALB) 4.3 gm/dl 3.5-4.6 A/G Ratio (test code = AGRAT) 0.9 % 1.1-2.2 L AST (SGOT) (test code = AST) 73 U/L 11-36 H ALT (SGPT) (test code = ALT) 20 U/L 11-40 Alkaline Phos (test code = ALKP) 134 U/L 47-114 H Total Bilirubin (test code = TBIL) 1.5 mg/dl 0.2-1.2 H Globulin (test code = GLOBU) 4.9 gm/dl 2.3-3.5 H Anion Gap (test code = GAP) 12 Calcium, Corrected (test code = CALCCORR) 9.7 mg/dl 8.4-10.2 Various formulas exist for corrected serum calcium results, each yielding different values. This corrected result was based on the formula: Corrected Calcium = SerumCalcium + [0.8 * ( 4 - SerumAlbumin)] EGFR if (test code = EGFRAA) >60 mL/min/1.73m\\S\\2 EGFR if Non- (test code = EGFRNA) >60 mL/min/1.73m\\ S\\2 Estimated Glomerular Filtration Rate (eGFR) Reference Intervals Decision Points for 18 years and older and average body mass: >= 60 Does not exclude kidney disease. 30 - 59 Suggests moderate chronic kidney disease and indicates the need for further investigation including assessment of proteinuria and cardiovascular factors. < 30 Usually indicates a need for referral for assessment and management of chronic kidney failure. CBC WITH AUTO [id number] 15:49:00* Test Item Value Reference Range Interpretation Comments WBC (test code = WBC) 7.43 10\\S\\3/ul 4.80-10.80 RBC (test code = RBC) 4.72 10\\S\\6/ul 4.70-6.10 Hemoglobin (test code = HGB) 14.0 gm/dl 14.0-18.0 Hematocrit (test code = HCT) 44.8 % 42.0-50.0 MCV (test code = MCV) 94.9 fL 80.0-94.0 H MCH (test code = MCH) 29.7 pg 27.0-31.0 MCHC (test code = MCHC) 31.3 gm/dl 33.0-37.0 L RDW (test code = RDWVC) 16.0 % 11.5-14.5 H Platelet (test code = PLT) 243 10\\S\\3/ul 130-400 MPV (test code = MPV) 9.4 fL 7.4-10.4 A "NOT M EASURED" RESULTS ARE DISPLAYED WHEN THE INSTRUMENT HAS A SUPPRESSED OR UNREPORTABLE RESULT. THIS WILL MOST OFTEN HAPPEN WITH THE MPV WHEN THERE IS AN ABNORMAL PLATELET DISTRIBUTION DUE TO A CRITICAL LOW VALUE OR PLATELET CLUMPING. THE RDW MAY BE SUPPRESSED IF THERE ARE MULTIPLE PEAKS PRESENT ON THE RBC HISTOGRAM. IN THIS CASE, A MANUAL REVIEW OF THE SLIDE WILL BE PERFORMED, AND RBC MORPHOLOGY WILL BE NOTED ON THE REPORT. NE% (test code = NE) 56.1 % 42.0-75.0 LY% (test code = LY) 29.6 % 13.0-42.0 MO% (test code = MO) 9.6 % 4.0-14.0 EO% (test code = EO) 3.5 % 1.0-3.0 H BA% (test code = BA) 1.1 % 1.0-3.0 IG% (test code = IG%) 0.1 % 0.0-0.4 [id number] 20:13:00* Test Item Value Reference Range Interpretation Comments Glucose (test code = GLU) 82 mg/dl 75-110 BUN (test code = BUN) 14.0 mg/dl 6.0-17.0 Creatinine (test code = CREA) 1.0 mg/dl 0.4-1.2 Sodium (test code = NA) 143 mmol/l 137-145 Potassium (test code = K) 4.8 mmol/l 3.5-5.0 Chloride (test code = CL) 113 mmol/l 98-107 H CO2 (test code = CO2) 24 mmol/l 22-30 Anion Gap (test code = GAP) 7 Calcium (test code = CALC) 9.2 mg/dl 8.4-10.2 T Protein (test code = TP) 8.2 gm/dl 5.1-8.7 Albumin (test code = ALB) 4.0 gm/dl 3.5-4.6 A/G Ratio (test code = AGRAT) 1.0 % 1.1-2.2 L AST (SGOT) (test code = AST) 54 U/L 11-36 H ALT (SGPT) (test code = ALT) 30 U/L 11-40 Alkaline Phos (test code = ALKP) 139 U/L 47-114 H Total Bilirubin (test code = TBIL) 0.7 mg/dl 0.2-1.2 Globulin (test code = GLOBU) 4.2 gm/dl 2.3-3.5 H Calcium, Corrected (test code = CALCCORR) 9.2 mg/dl 8.4-10.2 Various formulas exist for corrected serum calcium results, each yielding different values. This corrected result was based on the formula: Corrected Calcium = SerumCalcium + [0.8 * ( 4 - SerumAlbumin)] EGFR if (test code = EGFRAA) >60 mL/min/1.73m\\S\\2 EGFR if Non- (test code = EGFRNA) >60 mL/min/1.73m\\ S\\2 Estimated Glomerular Filtration Rate (eGFR) Reference Intervals Decision Points for 18 years and older and average body mass: >= 60 Does not exclude kidney disease. 30 - 59 Suggests moderate chronic kidney disease and indicates the need for further investigation including assessment of proteinuria and cardiovascular factors. < 30 Usually indicates a need for referral for assessment and management of chronic kidney failure. PT AND [id number] 20:13:00* Test Item Value Reference Range Interpretation Comments Protime (test code = PT) 11.6 seconds 9.0-11.8 INR (test code = INR) 1.1 0.9-1.1 INR re sults are intended ONLY to monitor Oral Anticoagulant therapy in stablized patients. The INR Therapeutic Range is 2.0 - 3.0 Patients with a mechanical heart, the INR Range is 2.5 - 3.5 [id number] 20:13:00* Test Item Value Reference Range Interpretation Comments aPTT (test code = PTT) 29.4 seconds 25.3-35.7 CBC WITH AUTO [id number] 20:03:00* Test Item Value Reference Range Interpretation Comments WBC (test code = WBC) 11.80 10\\S\\3/ul 4.80-10.80 H RBC (test code = RBC) 3.89 10\\S\\6/ul 4.70-6.10 L Hemoglobin (test code = HGB) 12.4 gm/dl 14.0-18.0 L Hematocrit (test code = HCT) 38.6 % 42.0-50.0 L MCV (test code = MCV) 99.2 fL 80.0-94.0 H MCH (test code = MCH) 31.9 pg 27.0-31.0 H MCHC (test code = MCHC) 32.1 gm/dl 33.0-37.0 L RDW (test code = RDWVC) 15.2 % 11.5-14.5 H Platelet (test code = PLT) 202 10\\S\\3/ul 130-400 MPV (test code = MPV) 8.9 fL 7.4-10.4 A "NOT M EASURED" RESULTS ARE DISPLAYED WHEN THE INSTRUMENT HAS A SUPPRESSED OR UNREPORTABLE RESULT. THIS WILL MOST OFTEN HAPPEN WITH THE MPV WHEN THERE IS AN ABNORMAL PLATELET DISTRIBUTION DUE TO A CRITICAL LOW VALUE OR PLATELET CLUMPING. THE RDW MAY BE SUPPRESSED IF THERE ARE MULTIPLE PEAKS PRESENT ON THE RBC HISTOGRAM. IN THIS CASE, A MANUAL REVIEW OF THE SLIDE WILL BE PERFORMED, AND RBC MORPHOLOGY WILL BE NOTED ON THE REPORT. NE% (test code = NE) 67.9 % 42.0-75.0 LY% (test code = LY) 21.0 % 13.0-42.0 MO% (test code = MO) 8.2 % 4.0-14.0 EO% (test code = EO) 1.7 % 1.0-3.0 BA% (test code = BA) 0.8 % 1.0-3.0 L IG% (test code = IG%) 0.4 % 0.0-0.4 XR HUMERUS MIN 2 [id number] 19:03:19Left humerus - 2 viewsHISTORY: Pain.COMPARISON: Left humerus, 2 views, 04/11/2017FINDINGS:Bones:Interval reduction of the acute comminuted fracture of the mid diaphysis of theleft humerus. The major fracture fragments are in near-anatomic alignment.Minimal posterior displacement of the distal fracture fragments is present. Noexpansile lytic or sclerotic lesion.Joints:The joint spaces are well-maintained. No dislocation.Soft tissues:The soft tissues appear unremarkable.IMPRE SSION:Comminuted fracture of the mid diaphysis of the left humerus.This final re port was electronically signed by Dr Steph Poole MD 04/11/20176:57 PMDictated B y: Iris POOLEte: 04/11/2017 19:03XR HUMERUS MIN 2 [id number] 18:20:15 Left humerus - 2 viewsHISTORY: Pain.COMPARISON: None available.FINDINGS:Bones:A cute comminuted fracture of the mid diaphysis of the left humerus with medialang ulation of the distal fracture fragments.No expansile lytic or sclerotic lesion. Joints:The joint spaces are well-maintained. No dislocation.Soft tissues:The so ft tissues appear unremarkable.IMPRESSION:Comminuted fracture of the mid diaphys is of the left humerus.This final report was electronically signed by Dr Steph de león MD 04/11/20176:13 PMDictated By: Michael POOLE: 04/11/2017 18:20
--- OUTSIDE RECORDS SUMMARY | 2020-02-01 19:33 | XMS REPORT | Clinical Summary ---
Author Author Kd Jain Organization [facility] Address Unknown Phone Unavailable Care Team Providers Care Machinery Cleaner Name Role Phone Asked, No Pcp PCP Unavailable Allergies No Known Active Allergies Medications End Date Status Medication Sig Dispensed Refills Start Date Active ACETAMINOPHEN (TYLENOL Take by 0 EXTRA STRENGTH ORAL) mouth. Active amLODIPine (NORVASC) 2.5 2.5 mg daily. 2 10/19 mg tablet 8 Active losartan (COZAAR) 25 MG 25 mg daily. 2 tablet 8 Active lactulose 10 gram/15 mL Take 20 g by 0 (15 mL) solution mouth 3 (three) times a day. Active carvediloL (COREG) 6.25 Take 6.25 mg 0 MG tablet by mouth 2 (two) times a day with meals. 11/16/2020 Active pregabalin (Lyrica) 50 MG Take 1 180 capsule 3 capsuleIndications: capsule (50 0 Awaiting liver mg total) by transplant, Neuropathy mouth 2 (two) times a day. 11/16/2019 Discontinued (Therapy comple red) varenicline (CHANTIX) 1 Take 1 mg by 0 mg tablet mouth 2 (two) times a day. Take with full glass of water. 11/17/2019 Discontinued (Reorder) pregabalin (Lyrica) 50 MG Take 1 180 capsule 3 capsuleIndications: capsule (50 0 Awaiting liver mg total) by transplant, Neuropathy mouth 2 (two) times a day. 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 05/07/2016 Portal hypertension 12/16/2015 Protein calorie malnutrition 12/16/2015 Peripheral neuropathy 12/16/2015 Hepatic cirrhosis due to chronic hepatitis C infectio n 12/02/2015 Ascites 12/02/2015 Encounters Care Team Description Date Type Specialty Madyson Lim RN Awaiting liver transplant (Primary Dx); Hepatic cirrhosis due to chronic hepatitis C infection (HCC) 12/26/2019 Orders Only Transplant Madyson Lim RN Awaiting liver transplant; Neuropathy 11/17/2019 Orders Only Transplant Leo Ferreira MD Hepatic cirrhosis due to chronic hepatit is C infection (HCC) (Primary Dx); Awaiting liver transplant; Neuropathy 11/16/2019 Office Visit Transplant Kaleb Ewing MD Awaiting liver transplant; Hepatic cirrhosis due to chronic hepatitis C infection (HCC) 11/16/2019 Hospital Radiology Encounter Fartun Cook MD Awaiting liver transplant; Hepatic cirrhosis due to chronic hepatitis C infection (HCC); Preop cardiovascular exam 11/16/2019 Hospital Procedural Cardiolo gy Encounter 11/16/2019 Travel Maureen Langston MA Appointment 10/11/2019 Documentation Cardiology Madyson Lim RN Awaiting liver transplant (Primary Dx); Hepatic cirrhosis due to chronic hepatitis C infection (HCC); Preop cardiovascular exam 09/25/2019 Orders Only Transplant Shanique Grimaldo LCSW 09/05/2019 Documentation Transplant Kaleb Ewing MD Awaiting liver transplant; Hepatic cirrhosis due to chronic hepatitis C infection (HCC) 06/05/2019 Hospital Radiology Encounter Chiara Delacruz 05/31/2019 Telephone Transplant Kaleb Ewing MD Awaiting liver transplant (Primary Dx); Hepatic cirrhosis due to chronic hepatitis C infection (HCC) 05/25/2019 Office Visit Transplant Leo Ferreira MD Hepatic cirrhosis due to chronic hepatit is C infection (HCC); Awaiting liver transplant 05/25/2019 Hospital Procedural Cardiolo gy Encounter Leo Ferreira MD Hepatic cirrhosis due to chronic hepatit is C infection (HCC); Awaiting liver transplant 05/25/2019 Hospital Radiology Encounter Madyson Lim RN Meld Score Update Notification (MELD sco re 10, recert due 03/28/20) 03/29/2019 Documentation Transplant Madyson Lim RN Hepatic cirrhosis due to chronic hepatit is C infection (HCC) (Primary Dx); Awaiting liver transplant 03/28/2019 Orders Only Transplant Madyson Lim RN Hepatic cirrhosis due to chronic hepatit is C infection (HCC) (Primary Dx); Awaiting liver transplant 03/28/2019 Orders Only Transplant Franny Prince MA Speak with coord 03/28/2019 Telephone Transplant Madyson Lim RN Hepatic cirrhosis due to chronic hepatit is C infection (HCC) (Primary Dx); Awaiting liver transplant 02/13/2019 Orders Only Transplant after 01/31/2019 Surgical History Surgery Date Site/Laterality Comments TONSILLECTOMY EYE SURGERY glaucoma surgery CARDIAC CATHETERIZATION 01/16/2016 N/A Proced ure: Cv right heart cath selective coronary lv; Surgeon: Nathaniel Rao MD; Location: [facility] [employer] Developer Invasive Location; Servic e: Cardiovascular; Laterality: N/A; EXPLORATORY LAPAROTOMY Medical History Medical History Date Comments Hypertension not on any meds Shortness of breath on exertion Ascites Eating disorder decreased appetite due to a scites Hepatitis C STD (sexually transmitted disease) Chlamydia as a teen Edema feet and ankles Cirrhosis (HCC) Family History Medical History Relation Name Comments Cancer Paternal Aunt Relation Name Status Comments Paternal Aunt Social History Date Tobacco Use Types Packs/Day Years Used Current Every Day Smoker Cigarettes 1 Smokeless Tobacco: Never Used Comments: started as a teen Drinks/Week oz/Week Comments Alcohol Use No Sex Assigned at Date Recorded Not on file Last Filed Vital Signs Reading Time Taken Comments Vital Sign 173/71 11/16/2019 2:00 PM CDT Blood Pressure 80 11/16/2019 2:00 PM CDT Pulse 35.9 C (96.7 F) 11/16/2019 2:00 PM CDT Temperature 18 11/16/2019 2:00 PM CDT Respiratory Rate 97% 11/16/2019 2:00 PM CDT Oxygen Saturation - - Inhaled Oxygen Concentration 100 kg (220 lb 14.4 oz) 11/16/2019 2:00 PM CDT Weight 182.9 cm (6') 11/16/2019 2:00 PM CDT Height 29.96 11/16/2019 2:00 PM CDT Body Mass Index Plan of Treatment Care Team Description Date Type Specialty Leo Ferreira MD [address] [address] 02/22/2020 Lab Transplant Leo Ferreira MD [address] [id number] [phone] 02/22/2020 Appointment Radiology Kaleb Ewing MD [address] [address] [phone] 02/22/2020 Office Visit Transplant Health Maintenance Due Date Last Done Comments COLONOSCOPY SCREENING 2006 SHINGLES VACCINES (#1) 2006 INFLUENZA VACCINE 11/25/2019 Procedures Comments Procedure Name Priority Date/Time Associated Diag nosis MRI ABDOMEN W WO CONTRAST Routine 11/16/2019 Awai ting liver transplant 1:35 PM CDT Hepatic cirrhosis due to chronic hepatitis C infection (HCC) TTE COMPLETE, WO Routine 11/16/2019 Awaiting live r transplant CONTRAST, W AGITATED 12:12 PM CDT Hepatic cirrhosi s due to SALINE (23545) chronic hepatitis C infection (HCC) Preop cardiovascular exam ESTIMATED GFR Routine 11/16/2019 9:30 AM CDT PHOSPHORUS LEVEL Routine 11/16/2019 Awaiting live r transplant 9:30 AM CDT Hepatic cirrhosis due to chronic hepatitis C infection (HCC) MAGNESIUM LEVEL Routine 11/16/2019 Awaiting liver transplant 9:30 AM CDT Hepatic cirrhosis due to chronic hepatitis C infection (HCC) ALPHA FETOPROTEIN Routine 11/16/2019 Awaiting neha er transplant 9:30 AM CDT Hepatic cirrhosis due to chronic hepatitis C infection (HCC) HC COMPLETE BLD COUNT Routine 11/16/2019 Awaiting liver transplant W/AUTO DIFF 9:30 AM CDT Hepatic cirrhosis d ue to chronic hepatitis C infection (HCC) PARTIAL THROMBOPLASTIN Routine 11/16/2019 Awaitin g liver transplant TIME (PTT) 9:30 AM CDT Hepatic cirrhosis d ue to chronic hepatitis C infection (HCC) PROTHROMBIN TIME WITH INR Routine 11/16/2019 Awai ting liver transplant 9:30 AM CDT Hepatic cirrhosis due to chronic hepatitis C infection (HCC) HEPATIC FUNCTION PANEL Routine 11/16/2019 Awaitin g liver transplant 9:30 AM CDT Hepatic cirrhosis due to chronic hepatitis C infection (HCC) BASIC METABOLIC PANEL Routine 11/16/2019 Awaiting liver transplant 9:30 AM CDT Hepatic cirrhosis due to chronic hepatitis C infection (HCC) MRI ABDOMEN W WO CONTRAST Routine 06/05/2019 Awai ting liver transplant 7:30 PM DIRECTIONAL BORE OPERATOR Hepatic cirrhosis due to chronic hepatitis C infection (HCC) TTE COMPLETE, WO Routine 05/25/2019 Hepatic cirrh osis due to CONTRAST, W DOPPLER 3:00 PM DIRECTIONAL BORE OPERATOR chronic hepatitis C (82024) infection (HCC) Awaiting liver transplant MRI ABDOMEN W WO CONTRAST Routine 05/25/2019 Hepa tic cirrhosis due to 12:00 PM DIRECTIONAL BORE OPERATOR chronic hepatitis C infection (HCC) Awaiting liver transplant ESTIMATED GFR Routine 05/25/2019 10:57 AM DIRECTIONAL BORE OPERATOR POC CREATININE Routine 05/25/2019 10:57 AM DIRECTIONAL BORE OPERATOR ESTIMATED GFR Routine 05/25/2019 9:50 AM DIRECTIONAL BORE OPERATOR PHOSPHORUS LEVEL Routine 05/25/2019 Hepatic cirrh osis due to 9:50 AM DIRECTIONAL BORE OPERATOR chronic hepatitis C infection (HCC) Awaiting liver transplant MAGNESIUM LEVEL Routine 05/25/2019 Hepatic cirrho sis due to 9:50 AM DIRECTIONAL BORE OPERATOR chronic hepatitis C infection (HCC) Awaiting liver transplant ALPHA FETOPROTEIN Routine 05/25/2019 Hepatic cirr hosis due to 9:50 AM DIRECTIONAL BORE OPERATOR chronic hepatitis C infection (HCC) Awaiting liver transplant HC COMPLETE BLD COUNT Routine 05/25/2019 Hepatic cirrhosis due to W/AUTO DIFF 9:50 AM DIRECTIONAL BORE OPERATOR chronic hepatitis C infection (HCC) Awaiting liver transplant PARTIAL THROMBOPLASTIN Routine 05/25/2019 Hepatic cirrhosis due to TIME (PTT) 9:50 AM DIRECTIONAL BORE OPERATOR chronic hepatitis C infection (HCC) Awaiting liver transplant PROTHROMBIN TIME WITH INR Routine 05/25/2019 Hepa tic cirrhosis due to 9:50 AM DIRECTIONAL BORE OPERATOR chronic hepatitis C infection (HCC) Awaiting liver transplant HEPATIC FUNCTION PANEL Routine 05/25/2019 Hepatic cirrhosis due to 9:50 AM DIRECTIONAL BORE OPERATOR chronic hepatitis C infection (HCC) Awaiting liver transplant BASIC METABOLIC PANEL Routine 05/25/2019 Hepatic cirrhosis due to 9:50 AM DIRECTIONAL BORE OPERATOR chronic hepatitis C infection (HCC) Awaiting liver transplant CBC WITH PLATELET AND Routine 03/28/2019 Hepatic cirrhosis due to DIFFERENTIAL 12:00 AM DIRECTIONAL BORE OPERATOR chronic hepatitis C infection (HCC) Awaiting liver transplant PARTIAL THROMBOPLASTIN Routine 03/28/2019 Hepatic cirrhosis due to TIME (PTT) 12:00 AM DIRECTIONAL BORE OPERATOR chronic hepatitis C infection (HCC) Awaiting liver transplant PROTHROMBIN TIME WITH INR Routine 03/28/2019 Hepa tic cirrhosis due to 12:00 AM DIRECTIONAL BORE OPERATOR chronic hepatitis C infection (HCC) Awaiting liver transplant HEPATIC FUNCTION PANEL Routine 03/28/2019 Hepatic cirrhosis due to 12:00 AM DIRECTIONAL BORE OPERATOR chronic hepatitis C infection (HCC) Awaiting liver transplant BASIC METABOLIC PANEL Routine 03/28/2019 Hepatic cirrhosis due to 12:00 AM DIRECTIONAL BORE OPERATOR chronic hepatitis C infection (HCC) Awaiting liver transplant after 01/31/2019 Results * MRI Abdomen W Wo Contrast (11/16/2019 1:35 PM CDT) Only the most recent of 3 results within the time period is included. Specimen Narrative Performed At [facility] EXAMINATION: MRI ABDOMEN W WO CONTRAS T CLINICAL HISTORY: Z76.82 Awaiting org an transplant status, B18.2 Chronic viral hepatitis C, HCC Screen TECHNIQUE: Multiplanar multisequence MR images of the abdomen were obtained pre- and post dynamic intravenous administra tion of Gadolinium. COMPARISON: None. FINDINGS: 1.The liver is cirrhotic and demonstrat es diffuse hepatic steatosis. 6 mm ill-defined focus of hyperenhancement ( series 6 image 138) without delayed washout, intrinsic T1 or T2 signal abno rmality, or diffusion restriction may represent a small vascular shunt. Attention on follow-up imaging i s recommended. There is no suspicious liver mass. 2.A TIPS stent is patent. The portal, s plenic, and superior mesenteric veins are patent. 3.The spleen, pancreas, and adrenals ar e normal. 4.There are several stones in the gallb ladder. 5.Several benign bilateral renal cysts are present. This includes a hemorrhagic or proteinaceous 2.5 cm right renal cys t. There is no hydronephrosis. 6.The stomach and imaged bowel loops ar e unremarkable. A ventral midline abdominal hernia contains a few retaine d but unobstructed small bowel loops. 7.There is trace ascites. 8.Chronic rounded atelectasis in the le ft lower lobe and trace left pleural fluid, and mild chronic atelectasis or scarring in the right lower lobe, are again noted. 9.There is no aortic ectasia or aneurys m. 10.No significant marrow abnormality is seen. IMPRESSION: No evidence of HCC. Subcentimeter nonsp ecific hypervascular focus in the right hepatic lobe may be a benign perfusion anomaly and can be followed. Technically LI RADS category 3. [id number] Procedure Note Hm Interface, Radiology Results Incoming - 11/16/2019 2:14 PM CDT EXAMINATION: MRI ABDOMEN W WO CONTRAST CLINICAL HISTORY: Z76.82 Awaiting organ transplant status, B18.2 Chronic viral hepatitis C, HCC Screen TECHNIQUE: Multiplanar multisequence MR images of the abdomen were obtained pre- and post dynamic intravenous administration of Gadolinium. COMPARISON: None. FINDINGS: 1.The liver is cirrhotic and demonstrate s diffuse hepatic steatosis. 6 mm ill- defined focus of hyperenhancement (series 6 image 138) without delayed washout, intrinsic T1 or T2 signal abnormality, or diffusion restriction may represent a small vascular shunt. Attention on follow-up imaging is recommended. There is no suspicious liver mass. 2.A TIPS stent is patent. The portal, sp lenic, and superior mesenteric veins are patent. 3.The spleen, pancreas, and adrenals are normal. 4.There are several stones in the gallbl adder. 5.Several benign bilateral renal cysts a re present. This includes a hemorrhagic or proteinaceous 2.5 cm right renal cyst. There is no hydronephrosis. 6.The stomach and imaged bowel loops are unremarkable. A ventral midline abdominal hernia contains a few retained but unobstructed small bowel loops. 7.There is trace ascites. 8.Chronic rounded atelectasis in the lef t lower lobe and trace left pleural fluid, and mild chronic atelectasis or scarring in the right lower lobe, are again noted. 9.There is no aortic ectasia or aneurysm . 10.No significant marrow abnormality is seen. IMPRESSION: No evidence of HCC. Subcentimeter nonspecific hypervascular focus in the right hepatic lobe may be a benign perfusion anomaly and can be followed. Technically LI RADS category 3. [id number] Performing Organization Address City/State/ZIP Code P maira Number [facility] [address] [place] [address] * Transthoracic Echocardiogram Complete, (w Contrast, Strain and 3D if needed) (11/16/2019 12:12 PM CDT) Specimen Narrative Performed At [facility] Echo cardiography Report [id number] [facility], [facility] [address], [place] [address] Pat.Name: STEPH PINK Pat.ID: [id number] .Date: 11/16/2019 Refer.MD: FARTUN COOK MD Exam Time: 10:44:00 AM Study Type:Routine Echo Height: 72in Weight: 220lb BSA: 2.22 m2 Age: 5 1955,64Y Sex: MALE BP: 172/75 HR: 71 bpm Sonogrphr: RAGHAVENDRA Aragon RVS Pat. Stat.:Outpatient Room: [facility] Study Status:Final Echo Event ID:[id number] Order ID: [id number] Reason for Study:Pre-Liver Transplant History / Clinical:Cirrhosis Procedures: 2D Echo, Colorflow Doppler, Strain, Intravenous Saline Contrast Race: C SUMMARY: LV EF is normal. Estimated EF is 65-69% RV systolic function is normal. No intracardiac shunt detected. Normal diastolic function adjusted for age; normal LV filling pressures. Estimated PA systolic pressure is 30 mm Hg, assuming a mean RAP of 5 mmHg. FINDINGS: LV: LV size is normal. There i s mild eccentric LV hypertrophy. LV EF is normal. Overall wall motion is normal. Estimated EF is 65-69% RV: RV size is normal. RV syst olic function is normal. LA: LA volume is severely enla rged. RA: RA size is normal. AO: Aortic root diameter is no rmal. LIMA: No pericardial effusion. Cntrst: No intracardiac shunt detect ed. AV: No structural AV abnormali ties noted. MV: No structural MV abnormali ties noted. Mild mitral regurgitation. PV: No structural PV abnormali ties noted. TV: No structural TV abnormali ties noted. A trace of tricuspid regurgitation Lee: Normal diastolic function a djusted for age; normal LV filling pressures. Other: Estimated PA systolic press ure is 30 mmHg, assuming a mean RAP of 5 mmHg. MEASUREMENTS: 2D Parasternal Long [place] Ao An 2.5 cm LVPWd 1 cm Ao Rtd 3.3 cm Index 1.5 cm/m2 LA Ds 5.7 cm IVSd 1.2 cm RWT 0.35 LVIDd 5.9 cm Index 2.6 cm/m2 LV Mass 272 g (122-1 74)* LVIDs 3.6 cm LVM Index 123 g/m LV%fs 39 % LVOT 2.3 cm LA Sng Plane LA Area 31 cm (8.8-2 3.4)* LA Vol 117 ml Index 53 ml/m2 LA LngAx 6.9 cm RA Sng Plane RA Vol 75 ml Index 34 ml/m2 RA LngAx 6.6 cm RA Area 24 cm (8.3-1 9.5)* LVOT LVOT Area 4 cm DOPPLER LVOT Stroke Vol & Cardiac Out LVOT TVI 26 cm HR 76 bpm LVOT LVOT SV 108 ml LVOT CO 8.2 l/min SVi 49 ml/m LVOT CI 3.7 l/m/m IVRT IVRT 83 msec Signed 11/17/2019 12:09 PM Shane Zaidi MD Procedure Note Interface, Radiology Results In - 11/17/2019 12:09 PM CDT Echocardiography Report [id number] [place] [address] Pat.Name: STEPH PINK Pat.ID: [id number] St.Date: 11/16/2019 Refer.MD: FARTUN COOK MD Exam Time: 10:44:00 AM Study Type:Routine Echo Height: 72in Weight: 220lb BSA: 2.22 m2 Age: 5 1955,64Y Sex: MALE BP: 172/75 HR: 71 bpm Sonogrphr: ARGHAVENDRA Aragon, RVS Pat. Stat.:Outpatient Room: [facility] Study Status:Final Echo Event ID:[id number] Order ID: [id number] Reason for Study:Pre-Liver Transplant History / Clinical:Cirrhosis Procedures: 2D Echo, Colorflow Doppler, Strain, Intravenous Saline Contrast Race: C SUMMARY: LV EF is normal. Estimated EF is 65-69% RV systolic function is normal. No intracardiac shunt detected. Normal diastolic function adjusted for age; normal LV filling pressures. Estimated PA systolic pressure is 30 mmHg, assuming a mean RAP of 5 mmHg. FINDINGS: LV: LV size is normal. There is mild eccentric LV hypertrophy. LV EF is normal. Overall wall motion is normal. Estimated EF is 65-69% RV: RV size is normal. RV systolic function is normal. LA: LA volume is severely enlarged. RA: RA size is normal. AO: Aortic root diameter is normal. LIMA: No pericardial effusion. Cntrst: No intracardiac shunt detected. AV: No structural AV abnormalities noted. MV: No structural MV abnormalities noted. Mild mitral regurgitation. PV: No structural PV abnormalities noted. TV: No structural TV abnormalities noted. A trace of tricuspid regurgitation Lee: Normal diastolic function adjusted for age; normal LV filling pressures. Other: Estimated PA systolic pressure is 30 mmHg, assuming a mean RAP of 5 mmHg. MEASUREMENTS: 2D Parasternal Long [place] Ao An 2.5 cm LVPWd 1 cm Ao Rtd 3.3 cm Index 1.5 cm/m2 LA Ds 5.7 cm IVSd 1.2 cm RWT 0.35 LVIDd 5.9 cm Index 2.6 cm/m2 LV Mass 272 g (122-174)* LVIDs 3.6 cm LVM Index 123 g/m LV%fs 39 % LVOT 2.3 cm LA Sng Plane LA Area 31 cm (8.8-23.4)* LA Vol 117 ml Index 53 ml/m2 LA LngAx 6.9 cm RA Sng Plane RA Vol 75 ml Index 34 ml/m2 RA LngAx 6.6 cm RA Area 24 cm (8.3-19.5)* LVOT LVOT Area 4 cm DOPPLER LVOT Stroke Vol & Cardiac Out LVOT TVI 26 cm HR 76 bpm LVOT LVOT SV 108 ml LVOT CO 8.2 l/min SVi 49 ml/m LVOT CI 3.7 l/m/m IVRT IVRT 83 msec Signed 11/17/2019 12:09 PM Shane Zaidi MD Performing Organization Address City/State/ZIP Code P [facility] Number [facility] [address] [place] [address] * Estimated GFR (11/16/2019 9:30 AM CDT) Only the most recent of 3 results within the time period is included. [facility] Estimated GFR 57 (A) mL/min/1.73 m2 [facility] Comment: [facility] Interpretation G1 >=90 Normal or high G2 60-89 Mildly decreased G3a 45-59 Mildly to moderately decreased G3b 30-44 Moderately to severely decreased G4 15-29 Severely decreased G5 <15 Kidney failure The eGFR was calculated using the Chronic Kidney Disease Epidemiology Collaboration (CKD-EPI) equation. Interpretation is based on recommendations of the National Kidney Foundation-Kidney Disease Outcomes Quality Initiative (NKF-KDOQI) published in 2014. Specimen Performing Organization Address City/State/ZIP Code P maira Number [address] CHRISTIAN [address] [place] [address] * Alpha fetoprotein (11/16/2019 9:30 AM CDT) Only the most recent of 2 results within the time period is included. [facility] Alpha 1.9 0.0 - 8.3 ng/mL [facility] fetoprotein Comment: CHRISTIAN The Lise 8000 AFP immunoassay [facility] was used. Results obtained with different assay methods or kits should not be used interchangeably and may be different. Specimen Serum Performing Organization Address City/[facility] P maira Number [address] [place]RISTIAN [address] [place] [address] * Partial thromboplastin time, activated (11/16/2019 9:30 AM CDT) Only the most recent of 3 results within the time period is included. [facility] PTT 34.4 23.0 - 36.0 sec [facility] Comment: CHRISTIAN PTT therapeutic range for HOSPITAL unfractionated heparin is 61.0-112.0 seconds which corresponds to Anti-Xa 0.3-0.7 U/ml. Specimen Blood Performing Organization Address City/[facility] P maira Number [address] CHRISTIAN [address] [place] [address] * Prothrombin time with INR (11/16/2019 9:30 AM CDT) Only the most recent of 3 results within the time period is included. Prothrombin 15.2 (H) 11.5 - 14.5 sec [facility] INR 1.2 TR[facility] Comment: CHRISTIAN [facility] Ratio (INR) is a therapeutic monitoring tool for patients who are stable on oral anticoagulant therapy. An INR of 2.0-3.0 is suggested for deep vein thrombosis/pulmonary embolism. Specimen Blood Performing Organization Address City/State/ZIP Code P maira Number [facility] DEPARTMENT OF [address] [place] [address] PATHOLOGY AND GENOMIC MEDICINE [facility] [address] * CBC with platelet and differential (11/16/2019 9:30 AM CDT) Only the most recent of 3 results within the time period is included. WBC 7.78 4.50 - 11.00 k/uL [facility] RBC 3.83 (L) 4.40 - 6.00 m/uL [facility] HGB 12.8 (L) 14.0 - 18.0 g/dL [facility] HCT 39.2 (L) 41.0 - 51.0 % [facility] MCV 102.3 (H) 82.0 - 100.0 fL [facility] MCH 33.4 27.0 - 34.0 pg [facility] MCHC 32.7 31.0 - 37.0 g/dL [facility] RDW - SD 52.7 37.0 - 55.0 fL [facility] MPV 10.2 8.8 - 13.2 fL [facility] Platelet count 180 150 - 400 k/uL [facility] Nucleated RBC 0.00 /100 WBC [facility] Neutrophils 44.9 39.0 - 69.0 % [facility] Lymphocytes 35.7 25.0 - 45.0 % [facility] Monocytes 9.9 0.0 - 10.0 % [facility] Eosinophils 7.8 (H) 0.0 - 5.0 % [facility] Basophils 1.3 (H) 0.0 - 1.0 % [facility] Immature 0.4Comment: "Immature 0.0 - 1.0 % [facility] granulocytes granulocytes" (promyelocytes, METHOD IST myelocytes, metamyelocytes) [facility] Specimen Blood Performing Organization Address City/[facility] Code P maira Number [facility] DEPARTMENT OF [address] [place] [address] PATHOLOGY AND GENOMIC MEDICINE [address] * Phosphorus level (11/16/2019 9:30 AM CDT) Only the most recent of 2 results within the time period is included. Phosphorus 3.6 2.4 - 4.5 mg/dL [facility] Specimen Blood Performing Organization Address City/[facility] P maira Number [facility] DEPARTMENT OF [address] [place] [address] PATHOLOGY AND GENOMIC MEDICINE [address] * Magnesium level (11/16/2019 9:30 AM CDT) Only the most recent of 2 results within the time period is included. Magnesium 1.3 (L) 1.6 - 2.4 mg/dL [facility] Specimen Blood Performing Organization Address [facility] P maira Number [facility] DEPARTMENT OF [address] [place] [address] PATHOLOGY AND GENOMIC MEDICINE [address] * Hepatic function panel (11/16/2019 9:30 AM CDT) Only the most recent of 3 results within the time period is included. Albumin 3.3 (L) 3.5 - 5.0 g/dL [facility] Total bilirubin 1.0 0.0 - 1.2 mg/dL [facility] Bilirubin 0.4 (H) 0.0 - 0.3 mg/dL [place] direct [facility] Alkaline 98 40 - 129 U/L [place] phosphatase [facility] Protein 7.9 6.3 - 8.3 g/dL [place] Comment: [facility] [place] 4.6-7.0 g/dL 1 week 4.4-7.6 g/dL 7 months-1year 5.1-7.3 g/dL 1-2 years 5.6-7.5 g/dL >3 years 6.0-8.0 g/dL 18-150 6.3-8.3 g/dL ALT 14 5 - 50 U/L [facility] AST 27 10 - 50 U/L [facility] Specimen Blood Performing Organization Address [facility] P maira Number [facility] DEPARTMENT OF [address] [place] [address] PATHOLOGY AND GENOMIC MEDICINE [address] * Basic metabolic panel (11/16/2019 9:30 AM CDT) Only the most recent of 3 results within the time period is included. Sodium 138 135 - 148 mEq/L [facility] Potassium 4.2 3.5 - 5.0 mEq/L [facility] Chloride 101 98 - 112 mEq/L [facility] CO2 25 24 - 31 mEq/L [facility] Anion gap 12@ANIO 7 - 15 mEq/L [facility] BUN 12 8 - 23 mg/dL [facility] Creatinine 1.31 (H) 0.70 - 1.20 mg/dL [facility] Glucose 105 (H) 65 - 99 mg/dL [facility] Calcium 9.5 8.8 - 10.2 mg/dL [facility] Specimen Blood Performing Organization Address [facility] P maira Number [facility] DEPARTMENT OF [address] [place] [address] PATHOLOGY AND GENOMIC MEDICINE [address] * Echocardiogram complete w contrast and 3D if needed (05/25/2019 3:00 PM DIRECTIONAL BORE OPERATOR) Specimen Narrative Performed At [facility] Echo cardiography Report [address] [place] [address] Pat.Name: STEPH PINK Pat.ID: [id number] .Date: 05/25/2019 Exam Time: 2:09:00 PM Study Type:Routine Echo Height: 72in Weight: 220lb BSA: 2.22 m2 Age: 4 1955,63Y Sex: MALE BP: 181/78 HR: 77 bpm Sonogrphr: RAGHAVENDRA Garcia Pa t. Stat.:Outpatient Room: [facility] 26 Study Status:Final Echo Event ID:[id number] Order ID: [id number] Reason for Study:PRE LIVER EVAL History / Clinical:Cirrhosis Procedures: 2D Echo, Colorflow Doppler, Intravenous Saline Contrast Race: C SUMMARY: LV EF is normal. Estimated EF is 65-69% RV systolic function is normal. FINDINGS: LV: LV size is normal. There i s mild concentric LV hypertrophy. LV EF is normal. Overal l wall motion is normal. Estimated EF is 65-69% RV: RV size is normal. RV syst olic function is normal. LA: LA volume is moderately en larged. RA: RA size is normal. AO: Aortic root diameter is no rmal. LIMA: No pericardial effusion. Cntrst: No intracardiac shunt detect ed. AV: No structural AV abnormali ties noted. MV: Focal calcification of bg ral leaflets. Mild mitral regurgitation. PV: No structural PV abnormali ties noted. TV: No structural TV abnormali ties noted. Other: Insufficient TR jet to benedict mate PA systolic pressure. MEASUREMENTS: 2D Parasternal [place] Ao An 1.5 cm LVPWd 1.3 cm Ao Rtd 3.1 cm Index 1.4 cm/m2 LA Ds 4.8 cm IVSd 1.1 cm RWT 0.47 LVIDd 5.5 cm Index 2.5 cm/m2 LV Mass 272 g (122-1 74) LVIDs 3.4 cm LVM Index 123 g/m LV%fs 38 % LA Sng Plane LA Area 27 cm (8.8-2 3.4) LA Vol 100 ml Index 45 ml/m2 LA LngAx 5.9 cm LVOT Stroke Vol LVOT 2 cm LVOT LVOT Area 3.1 cm DOPPLER LVOT Stroke Vol LVOT TVI 32 cm LVOT CI 3.5 l/m/m LVOT SV 100 ml HR 77 bpm LVOT CO 7.7 l/min LVOT SVi 45 ml/m Signed 05/27/2019 11:03 PM Wang Campos M.D. Procedure Note Interface, Radiology Results In - 05/27/2019 11:03 PM DIRECTIONAL BORE OPERATOR Echocardiography Report [address] [facility], [facility] [address], [place] [address] Pat.Name: STEPH PINK Pat.ID: [id number] .Date: 05/25/2019 Exam Time: 2:09:00 PM Study Type:Routine Echo Height: 72in Weight: 220lb BSA: 2.22 m2 Age: 5 1955,63Y Sex: MALE BP: 181/78 HR: 77 bpm Sonogrphr: RAGHAVENDRA Garcia. Stat.:Outpatient Room: [facility] Study Status:Final Echo Event ID:[id number] Order ID: [id number] Reason for Study:PRE LIVER EVAL History / Clinical:Cirrhosis Procedures: 2D Echo, Colorflow Doppler, Intravenous Saline Contrast Race: C SUMMARY: LV EF is normal. Estimated EF is 65-69% RV systolic function is normal. FINDINGS: LV: LV size is normal. There is mild concentric LV hypertrophy. LV EF is normal. Overall wall motion is normal. Estimated EF is 65-69% RV: RV size is normal. RV systolic function is normal. LA: LA volume is moderately enlarged. RA: RA size is normal. AO: Aortic root diameter is normal. LIMA: No pericardial effusion. Cntrst: No intracardiac shunt detected. AV: No structural AV abnormalities noted. MV: Focal calcification of mitral leaflets. Mild mitral regurgitation. PV: No structural PV abnormalities noted. TV: No structural TV abnormalities noted. Other: Insufficient TR jet to estimate PA systolic pressure. MEASUREMENTS: 2D Parasternal [place] Ao An 1.5 cm LVPWd 1.3 cm Ao Rtd 3.1 cm Index 1.4 cm/m2 LA Ds 4.8 cm IVSd 1.1 cm RWT 0.47 LVIDd 5.5 cm Index 2.5 cm/m2 LV Mass 272 g (122-174) LVIDs 3.4 cm LVM Index 123 g/m LV%fs 38 % LA Sng Plane LA Area 27 cm (8.8-23.4) LA Vol 100 ml Index 45 ml/m2 LA LngAx 5.9 cm LVOT Stroke Vol LVOT 2 cm LVOT LVOT Area 3.1 cm DOPPLER LVOT Stroke Vol LVOT TVI 32 cm LVOT CI 3.5 l/m/m LVOT SV 100 ml HR 77 bpm LVOT CO 7.7 l/min LVOT SVi 45 ml/m Signed 05/27/2019 11:03 PM Wang Campos M.D. Performing Organization Address City/[facility]/ZIP Code P [facility] [address] [place] [address] * POC creatinine (05/25/2019 10:57 AM DIRECTIONAL BORE OPERATOR) POC creatinine 1.1 0.7 - 1.2 mg/dl [place] Comment: CHRISTIAN Asbestos Removal Worker Name: [facility] Justus Fink Device ID: [id number] Specimen Blood Performing Organization Address City/State/ZIP Code Leslye rao Number [facility] DEPARTMENT OF [address] [place] [address] PATHOLOGY AND GENOMIC MEDICINE [place] CHRISTIAN [address] [place] [address] HOSPITAL after 01/31/2019 Insurance Type Payer Benefit Subscriber ID Effective Phone Address Plan / Dates Group Transplant OPTUM TRANSPLANT MEDICARE OPTUM TXP [id number] 2018-P MEDICARE resent MCR O UHC MEDICARE UNITED [id number] 2017- HEALTHCARE Present MEDICARE [id number] 0-2016 Steph Pink Transplant Self 1955 [address] (Home) [place] [address] Advance Directives For more information, please contact: [phone] Patient Taxi Truck Driver Explanation Type Date Recorded Advance Directives, 04/14/2017 9:17 PM Living Will and Medical Power of Senior Production Supervisor AD and MPOA Advance Directives, 03/31/2016 10:23 AM Living Will and Medical Power of Senior Production Supervisor
--- OUTSIDE RECORDS SUMMARY | 2020-02-01 19:59 | XMS REPORT | Clinical Summary ---
Author Author [facility] Organization [place] [facility] Address Unknown Phone Unavailable Care Team Providers Care Weapons Mechanic Name Role Phone Asked, No Pcp PCP [...] Preop cardiovascular exam 09/25/2019 Orders Only Transplant hSanique Grimaldo LCSW 09/05/2019 Documentation Transplant Kaleb Ewing [...] coronary lv; Surgeon: Nathaniel Rao MD; Location: [facility] Port Traffic Manager Invasive Location; Servic e: Cardiovascular; Laterality: N/A; [...] Description Date Type Specialty Leo Ferreira MD [address] [address] 02/22/2020 Lab Transplant Leo Ferreira MD [address] [place] [id number] [phone] 02/22/2020 Appointment Radiology Kaleb Ewing MD [address] [address] [phone] 02/22/2020 Office Visit Transplant Health Maintenance Due [...] CDT Hepatic cirrhosi s due to SALINE (13881) chronic hepatitis C infection (HCC) Preop cardiovascular [...] 06/05/2019 Awai ting liver transplant 7:30 PM ORTHOTIC/PROSTHETIC PRACTITIONER Hepatic cirrhosis due to chronic hepatitis C infection (HCC) TTE COMPLETE, WO Routine 05/25/2019 Hepatic cirrh osis due to CONTRAST, W DOPPLER 3:00 PM ORTHOTIC/PROSTHETIC PRACTITIONER chronic hepatitis C (67849) infection (HCC) Awaiting liver transplant MRI ABDOMEN W WO CONTRAST Routine 05/25/2019 Hepa tic cirrhosis due to 12:00 PM ORTHOTIC/PROSTHETIC PRACTITIONER chronic hepatitis C infection (HCC) Awaiting liver transplant ESTIMATED GFR Routine 05/25/2019 10:57 AM ORTHOTIC/PROSTHETIC PRACTITIONER POC CREATININE Routine 05/25/2019 10:57 AM ORTHOTIC/PROSTHETIC PRACTITIONER ESTIMATED GFR Routine 05/25/2019 9:50 AM ORTHOTIC/PROSTHETIC PRACTITIONER PHOSPHORUS LEVEL Routine 05/25/2019 Hepatic cirrh osis due to 9:50 AM ORTHOTIC/PROSTHETIC PRACTITIONER chronic hepatitis C infection (HCC) Awaiting liver transplant MAGNESIUM LEVEL Routine 05/25/2019 Hepatic cirrho sis due to 9:50 AM ORTHOTIC/PROSTHETIC PRACTITIONER chronic hepatitis C infection (HCC) Awaiting liver transplant ALPHA FETOPROTEIN Routine 05/25/2019 Hepatic cirr hosis due to 9:50 AM ORTHOTIC/PROSTHETIC PRACTITIONER chronic hepatitis C infection (HCC) Awaiting liver transplant HC COMPLETE BLD COUNT Routine 05/25/2019 Hepatic cirrhosis due to W/AUTO DIFF 9:50 AM ORTHOTIC/PROSTHETIC PRACTITIONER chronic hepatitis C infection (HCC) Awaiting liver transplant PARTIAL THROMBOPLASTIN Routine 05/25/2019 Hepatic cirrhosis due to TIME (PTT) 9:50 AM ORTHOTIC/PROSTHETIC PRACTITIONER chronic hepatitis C infection (HCC) Awaiting liver transplant PROTHROMBIN TIME WITH INR Routine 05/25/2019 Hepa tic cirrhosis due to 9:50 AM ORTHOTIC/PROSTHETIC PRACTITIONER chronic hepatitis C infection (HCC) Awaiting liver transplant HEPATIC FUNCTION PANEL Routine 05/25/2019 Hepatic cirrhosis due to 9:50 AM ORTHOTIC/PROSTHETIC PRACTITIONER chronic hepatitis C infection (HCC) Awaiting liver transplant BASIC METABOLIC PANEL Routine 05/25/2019 Hepatic cirrhosis due to 9:50 AM ORTHOTIC/PROSTHETIC PRACTITIONER chronic hepatitis C infection (HCC) Awaiting liver transplant CBC WITH PLATELET AND Routine 03/28/2019 Hepatic cirrhosis due to DIFFERENTIAL 12:00 AM ORTHOTIC/PROSTHETIC PRACTITIONER chronic hepatitis C infection (HCC) Awaiting liver transplant PARTIAL THROMBOPLASTIN Routine 03/28/2019 Hepatic cirrhosis due to TIME (PTT) 12:00 AM ORTHOTIC/PROSTHETIC PRACTITIONER chronic hepatitis C infection (HCC) Awaiting liver transplant PROTHROMBIN TIME WITH INR Routine 03/28/2019 Hepa tic cirrhosis due to 12:00 AM ORTHOTIC/PROSTHETIC PRACTITIONER chronic hepatitis C infection (HCC) Awaiting liver transplant HEPATIC FUNCTION PANEL Routine 03/28/2019 Hepatic cirrhosis due to 12:00 AM ORTHOTIC/PROSTHETIC PRACTITIONER chronic hepatitis C infection (HCC) Awaiting liver transplant BASIC METABOLIC PANEL Routine 03/28/2019 Hepatic cirrhosis due to 12:00 AM ORTHOTIC/PROSTHETIC PRACTITIONER chronic hepatitis C infection (HCC) Awaiting liver [...] be followed. Technically LI RADS category 3. [id number] Procedure Note Hm Interface, Radiology Results Incoming [...] be followed. Technically LI RADS category 3. [id number] Performing Organization Address City/State/ZIP Code P maira Number [facility] [address] [place] [address] * Transthoracic Echocardiogram Complete, (w Contrast, Strain and 3D if needed) (11/16/2019 12:12 PM CDT) Specimen Narrative Performed At [facility] Echo cardiography Report [address] [facility], [facility] 9, [place] [address] Pat.Name: STEPH PINK Pat.ID: [id number] .Date: 11/16/2019 Refer.MD: FARTUN COOK MD Exam Time: 10:44:00 AM Study Type:Routine Echo Height: 72in Weight: 220lb BSA: 2.22 m2 Age: 4 1955,64Y Sex: MALE BP: 172/75 HR: 71 bpm Sonogrphr: RAGHAVENDRA Aragon RVS Pat. Stat.:Outpatient Room: [facility] Study Status:Final Echo Event ID:[id number] Order ID: [id number] Reason for Study:Pre-Liver Transplant History / Clinical:Cirrhosis [...] of 5 mmHg. MEASUREMENTS: 2D Parasternal [place] Ao An 2.5 cm LVPWd 1 cm [...] 11/17/2019 12:09 PM CDT Echocardiography Report [address] [place] [address] Pat.Name: STEPH PINK Pat.ID: [id number] St.Date: 11/16/2019 Refer.MD: FARTUN COOK MD Exam Time: 10:44:00 AM Study Type:Routine Echo Height: 72in Weight: 220lb BSA: 2.22 m2 Age: 4 1955,64Y Sex: MALE BP: 172/75 HR: 71 bpm Sonogrphr: RAGHAVENDRA Aragon, RVS Pat. Stat.:Outpatient Room: [facility] Study Status:Final Echo Event ID:[id number] Order ID: [id number] Reason for Study:Pre-Liver Transplant History / Clinical:Cirrhosis [...] of 5 mmHg. MEASUREMENTS: 2D Parasternal [place] Ao An 2.5 cm LVPWd 1 cm [...] MD Performing Organization Address City/State/ZIP Code P [facility] Number [facility] [address] [place] [address] * Estimated GFR (11/16/2019 9:30 AM CDT) Only the most recent of 3 results within the time period is included. [facility] Estimated GFR 57 (A) mL/min/1.73 m2 [place] Comment: [facility] Interpretation G1 >=90 Normal or high [...] Organization Address City/State/ZIP Code P maira Number [address] JUDAISM [address] [place] [address] * Alpha fetoprotein (11/16/2019 9:30 AM CDT) Only the most recent of 2 results within the time period is included. [facility] Alpha 1.9 0.0 - 8.3 ng/mL [place] fetoprotein Comment: JUDAISM The Lise 8000 AFP immunoassay [employer] was used. Results obtained with different assay methods or kits should not be used interchangeably and may be different. Specimen Serum Performing Organization Address City/[facility] P maira Number [address] JUDAISM [address] [place] [address] * Partial thromboplastin time, activated (11/16/2019 9:30 AM CDT) Only the most recent of 3 results within the time period is included. [facility] PTT 34.4 23.0 - 36.0 sec [place] Comment: JUDAISM PTT therapeutic range for HOSPITAL unfractionated heparin is 61.0-112.0 seconds which corresponds to Anti-Xa 0.3-0.7 U/ml. Specimen Blood Performing Organization Address City/[facility] P maira Number [address] JUDAISM [address] [place] [address] * Prothrombin time with INR (11/16/2019 9:30 AM CDT) Only the most recent of 3 results within the time period is included. Prothrombin 15.2 (H) 11.5 - 14.5 sec [facility] INR 1.2 [place] Comment: JUDAISM [facility] International Normalized HOSPITAL Ratio (INR) is a therapeutic monitoring tool for patients who are stable on oral anticoagulant therapy. An INR of 2.0-3.0 is suggested for deep vein thrombosis/pulmonary embolism. Specimen Blood Performing Organization Address City/State/ZIP Code P maira Number [facility] DEPARTMENT OF [address] [place] [address] PATHOLOGY AND GENOMIC MEDICINE [facility] [address] * CBC with platelet and differential (11/16/2019 9:30 AM CDT) Only the most recent of 3 results within the time period is included. WBC 7.78 4.50 - 11.00 k/uL [facility] RBC 3.83 (L) 4.40 - 6.00 m/uL [facility] HGB 12.8 (L) 14.0 - 18.0 g/dL [facility] HCT 39.2 (L) 41.0 - 51.0 % [facility] MCV 102.3 (H) 82.0 - 100.0 fL [facility] MCH 33.4 27.0 - 34.0 pg [facility] MCHC 32.7 31.0 - 37.0 g/dL [facility] RDW - SD 52.7 37.0 - 55.0 fL [facility] MPV 10.2 8.8 - 13.2 fL [facility] Platelet count 180 150 - 400 k/uL [facility] Nucleated RBC 0.00 /100 WBC [facility] Neutrophils 44.9 39.0 - 69.0 % [facility] Lymphocytes 35.7 25.0 - 45.0 % [facility] Monocytes 9.9 0.0 - 10.0 % [facility] Eosinophils 7.8 (H) 0.0 - 5.0 % [facility] Basophils 1.3 (H) 0.0 - 1.0 % [facility] Immature 0.4Comment: "Immature 0.0 - 1.0 % [place] granulocytes granulocytes" (promyelocytes, METHOD IST myelocytes, metamyelocytes) [employer] Specimen Blood Performing Organization Address City/[facility] Code P maira Number [facility] DEPARTMENT OF [address] [place] [address] PATHOLOGY AND GENOMIC MEDICINE [address] * Phosphorus level (11/16/2019 9:30 AM CDT) Only the most recent of 2 results within the time period is included. Phosphorus 3.6 2.4 - 4.5 mg/dL [facility] Specimen Blood Performing Organization Address City/[facility] P maira Number [facility] DEPARTMENT OF [address] [place] [address] PATHOLOGY AND GENOMIC MEDICINE [address] * Magnesium level (11/16/2019 9:30 AM CDT) Only the most recent of 2 results within the time period is included. Magnesium 1.3 (L) 1.6 - 2.4 mg/dL [facility] Specimen Blood Performing Organization Address [facility] P maira Number [facility] DEPARTMENT OF [address] [place] [address] PATHOLOGY AND GENOMIC MEDICINE [address] * Hepatic function panel (11/16/2019 9:30 AM CDT) Only the most recent of 3 results within the time period is included. Albumin 3.3 (L) 3.5 - 5.0 g/dL [facility] Total bilirubin 1.0 0.0 - 1.2 mg/dL [facility] Bilirubin 0.4 (H) 0.0 - 0.3 mg/dL [place] direct [facility] Alkaline 98 40 - 129 U/L [place] phosphatase [facility] Protein 7.9 6.3 - 8.3 g/dL [place] Comment: [facility] AZLE [place] 4.6-7.0 g/dL 1 week 4.4-7.6 g/dL 7 months-1year 5.1-7.3 g/dL 1-2 years 5.6-7.5 g/dL >3 years 6.0-8.0 g/dL 18-150 6.3-8.3 g/dL ALT 14 5 - 50 U/L [facility] AST 27 10 - 50 U/L [facility] Specimen Blood Performing Organization Address [facility] P maira Number [facility] DEPARTMENT OF [address] [place] [address] PATHOLOGY AND GENOMIC MEDICINE [address] * Basic metabolic panel (11/16/2019 9:30 AM CDT) Only the most recent of 3 results within the time period is included. Sodium 138 135 - 148 mEq/L [facility] Potassium 4.2 3.5 - 5.0 mEq/L [facility] Chloride 101 98 - 112 mEq/L [facility] CO2 25 24 - 31 mEq/L [facility] Anion gap 12@ANIO 7 - 15 mEq/L [facility] BUN 12 8 - 23 mg/dL [facility] Creatinine 1.31 (H) 0.70 - 1.20 mg/dL [facility] Glucose 105 (H) 65 - 99 mg/dL [facility] Calcium 9.5 8.8 - 10.2 mg/dL [facility] Specimen Blood Performing Organization Address [facility] P maira Number [facility] DEPARTMENT OF [address] [place] [address] PATHOLOGY AND GENOMIC MEDICINE [address] * Echocardiogram complete w contrast and 3D if needed (05/25/2019 3:00 PM ORTHOTIC/PROSTHETIC PRACTITIONER) Specimen Narrative Performed At [facility] Echo cardiography Report [address] [place] [address] Pat.Name: STEPH PINK Pat.ID: [id number] .Date: 05/25/2019 Exam Time: 2:09:00 PM Study Type:Routine Echo Height: 72in Weight: 220lb BSA: 2.22 m2 Age: 4 1955,63Y Sex: MALE BP: 181/78 HR: 77 bpm Sonogrphr: RAGHAVENDRA Garcia Pa t. Stat.:Outpatient Room: [facility] 26 Study Status:Final Echo Event ID:[id number] Order ID: [id number] Reason for Study:PRE LIVER EVAL History / [...] PA systolic pressure. MEASUREMENTS: 2D Parasternal [place] Ao An 1.5 cm LVPWd 1.3 cm [...] Radiology Results In - 05/27/2019 11:03 PM ORTHOTIC/PROSTHETIC PRACTITIONER Echocardiography Report [address] [facility], [facility] [address], [place] [address] Pat.Name: STEPH PINK Pat.ID: [id number] .Date: 05/25/2019 Exam Time: 2:09:00 PM Study Type:Routine Echo Height: 72in Weight: 220lb BSA: 2.22 m2 Age: 5 1955,63Y Sex: MALE BP: 181/78 HR: 77 bpm Sonogrphr: RAGHAVENDRA Garcia. Stat.:Outpatient Room: [facility] Study Status:Final Echo Event ID:[id number] Order ID: [id number] Reason for Study:PRE LIVER EVAL History / [...] PA systolic pressure. MEASUREMENTS: 2D Parasternal [place] Ao An 1.5 cm LVPWd 1.3 cm [...] PM Wang Campos M.D. Performing Organization Address City/[facility]/ZIP Code P maira [facility] [address] [place] [address] * POC creatinine (05/25/2019 10:57 AM ORTHOTIC/PROSTHETIC PRACTITIONER) POC creatinine 1.1 0.7 - 1.2 mg/dl [place] Comment: JUDAISM Polysom Tech Name: [facility] Justus Fink Device ID: [id number] Specimen Blood Performing Organization Address City/State/ZIP Code Leslye rao Number [facility] DEPARTMENT OF [address] [place] [address] PATHOLOGY AND GENOMIC MEDICINE [place] JUDAISM [address] [place] [address] HOSPITAL after 01/31/2019 Insurance Type Payer Benefit Subscriber ID Effective Phone Address Plan / Dates Group Transplant OPTUM TRANSPLANT MEDICARE OPTUM TXP [id number] 2018-P MEDICARE resent MCR O UHC MEDICARE UNITED [id number] 2017- HEALTHCARE Present MEDICARE [phone] Steph Pink Transplant Self 1955 [address] (Home) [place] [address] Advance Directives For more information, please contact: [phone] Patient Mortgage Loan Officer Explanation Type Date Recorded Advance Directives, 04/14/2017 9:17 PM Living Will and Medical Power of Rehabilitation Worker AD and MPOA Advance Directives, 03/31/2016 10:23 AM Living Will and Medical Power of Rehabilitation Worker
[2020-02-01] MEDS ORDERED: ONDANSETRON HCL INJ 2MG/ML 2ML 2 MG/ML VIAL IV PRN (20:00)
--- OUTSIDE RECORDS SUMMARY | 2020-02-01 20:00 | XMS REPORT | Continuity of Care Document ---
Author Author [facility] t Organization [facility] Address [address] [place] [address] Phone Unavailable Care Team Providers Care Corporate Compliance Manager Name Role Phone Asked, Pcp No PCP Unavailable iVnce Perera Attphys Unavailable Raphael VILLAREAL, Madyson Attphys Unavailable Kaylin TILLMAN, Donald Manuel Attphys Jhon TILLMAN, Leo Attphys Eva TILLMAN, Shannan Wallace Attphys [phone] Kian PERERA, Maureen Attphys Unavailable Re ASSET COORDINATOR, Shanique Attphys Unavailable Chiara Delacruz Attphys Unavailable Niki PERERA, Franny Attphys Unavailable BENJI BROWN Attphys Unavailable TRAVIS, DR JULIANA BAH Attphys Unavailable KEVINBENJI Admphys Unavailable WOODY, DR JULIANA BAH Admphys Unavailable RADHA, SONIA Admphys Unavailable Payers Payer Name Policy Type Policy Number Effective Date Expiration Date S our[place] [employer]UM TRANSPLANT MEDICAREOPTUM [place] MED[place] ARE [id number] 2018-PresentTransplant [id number] 2018 00:0 0:00 Kd Umaña [facility] [id number] HMO [id number] 2017 00:00:00 Kd Umaña Problems Condition Name [...] shunt) 04/08/16 Disease Act hebert 2016-05-07 00:00:00 dK Umaña Ascites Ascites Problem Active 2016-02-28 00:00:00 [facility] ([facility]/[place]) Portal hypertension Portal hypertension Disease Active [...] Umaña Abnormal CXR Abnormal CXR Problem Active [facility] 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 Diagnosis Ac tive [facility] ial Outpatient Clinics Disease of liver Disease of liver Problem Active [facility] ([facility]/[place]/[place]) Allergies, Adverse Reactions, Alerts This patient [...] 2019-11-16 00:00:00 Current non-drinker of alcohol (finding) Kd Umaña Tobacco Comment 2015-12-02 00:00:00 2015-12-02 00:00:00 [...] (15 mL) solution 2019-11-16 14:34:43 Yes 20g [id number] Take 20 g by mouth 3 (three) [...] Gabapentin Gabapentin Yes Reji Kelli 1 capsule [facility] Outpatient [facility] Coreg Coreg Yes Reji Kelli 1 tablet C [facility] Losartan Potassium Losartan Potassium Yes Reji Kelli 1 tablet [facility] duloxetine 30 MG Delayed Release Oral Capsule duloxeti ne 30 MG Delayed Release Oral Capsule Yes 30mg QD [facility] ([facility]/[place]) Furosemide 40 MG Oral Tablet Furosemide 40 MG Oral Tablet Yes 40mg QD [facility] ([facility]/) Ondansetron Ondansetron Yes 4mg QID C [facility] ([facility]/) pregabalin 150 MG Oral Capsule pregabalin 150 MG Oral Capsule Yes 150mg BID [facility] rifaximin 550 MG Oral Tablet rifaximin 550 MG Oral Tablet Y es 550[facility] Spironolactone 100 MG Oral Tablet Spironolactone 100 MG Oral Tablet Yes 100mg [facility] ([facility] varenicline 1 MG Oral Tablet varenicline 1 MG Oral Tablet Yes 1mg BID [facility] ([facility]) Immunizations Ordered Immunization Name Filled Immunization Name Date Status Comments Source Seasonal, trivalent, recombinant, inject able influenza vaccine, preservative free Seasonal, trivalent, recombinant, inject able influenza vaccine, preservative free 2017-02-09 00:00:00 Completed [facility] ([facility]) Vital Signs Vital Name Observation Time Observation Value Comments Source Systolic blood pressure 2019-11-16 14:00:00 173 mm[Hg] Kd Umaña Diastolic blood pressure 2019-11-16 14:00:00 71 mm[Hg] Kd Umaña Heart rate 2019-11-16 14:00:00 80 /min Kd Umaña Body temperature 2019-11-16 14:00:00 35.94 Larisa Kana juliocesar Taoist Respiratory rate 2019-11-16 14:00:00 18 /min Kana juliocesar Taoist Body height 2019-11-16 14:00:00 182.9 cm Kd Umaña Body weight 2019-11-16 14:00:00 100.2 kg Kd Umaña BMI 2019-11-16 14:00:00 29.96 kg/m2 Kd Umaña Oxygen saturation in Arterial blood by Pulse oximetry 11-15 14:00:00 97 /min Kd Umaña BP Systolic 2017-07-26 18:27:00 177 mm[Hg] [facility] ([facility]/) BP Diastolic 2017-07-26 18:27:00 86 mm[Hg] [facility] ([facility]) Body Temperature 2017-07-26 14:46:00 98 F [facility] ([facility]) Respiratory Rate 2017-07-26 14:46:00 20 /min [facility] ([facility]) O2% BldC Oximetry 2017-07-26 14:46:00 97 % [facility] ([facility]) Height 2017-07-26 14:46:00 72 in [facility] ([facility]) Weight Measured 2017-07-26 14:46:00 191.8 lbs [facility] Nahum lopez [facility] ([facility]) BMI (Body Mass Index) 2017-07-26 14:46:00 26.2 [facility] ([facility]) Body Temperature 2017-04-11 21:00:00 98 F [facility] ([facility]) Respiratory Rate 2017-04-11 21:00:00 20 /min [facility] ([facility]) O2% BldC Oximetry 2017-04-11 21:00:00 98 % [facility] ([facility]) BP Systolic 2017-04-11 21:00:00 174 mm[Hg] [facility] ([facility]) BP Diastolic 2017-04-11 21:00:00 80 mm[Hg] [facility] ([facility]) Height 2017-04-11 16:52:00 72 in [facility] ([facility]) Weight Measured 2017-04-11 16:52:00 179.98 lbs [facility] Nahum [facility] ([facility]) BMI (Body Mass Index) 2017-04-11 16:52:00 24.6 [facility] ([facility]) Procedures Procedure Date / Time Performed Performing Clinician [facility] e MRI ABDOMEN W WO CONTRAST 2019-11-16 13:35:00 Kaleb Ewing TTE COMPLETE, WO CONTRAST, W AGITATED SALINE ([id number]) 2019-10 12:12:00 Fartun Cook Kd Umaña BASIC METABOLIC PANEL 2019-11-16 09:30:00 EgwiKaleb roque IJeremias Umaña HEPATIC FUNCTION PANEL 2019-11-16 09:30:00 Kaleb Ewing I. Willian Umaña PROTHROMBIN TIME WITH INR 2019-11-16 09:30:00 EgKaleb gupta Taoist PARTIAL THROMBOPLASTIN TIME (PTT) 2019-11-16 09:30:00 EgSrini gupta Taoist HC COMPLETE BLD COUNT W/AUTO DIFF 2019-11-16 09:30:00 EgSrini gupta Taoist ALPHA FETOPROTEIN 2019-11-16 09:30:00 Kaleb Ewing Taoist MAGNESIUM LEVEL 2019-11-16 09:30:00 Kaleb Ewing ethodist PHOSPHORUS LEVEL 2019-11-16 09:30:00 Kaleb Ewing I. Kd Umaña ESTIMATED GFR 2019-11-16 09:30:00 EgKaleb gupta ethodist MRI ABDOMEN W WO CONTRAST 2019-06-05 19:30:00 Kaleb Ewing Taoist TTE COMPLETE, WO CONTRAST, W DOPPLER ([id number]) 2019-05-25 15:0 0:00 Leo Rothman MRI ABDOMEN [...] 00:00:00 Leo Penn Procedure on colon [facility] ([facility]) TREAT HUMERUS FRACTURE [facility] ([facility]) Plan of Care Planned Activity Planned Date Details Comments Source Future Scheduled Test 2019-11-25 00:00:00 INFLUENZA VACCINE [code = INFLUENZA VACCINE] Kd Umaña Future Scheduled Test 2006 00:00:00 COLONOSCOPY SCREEN ING [code = COLONOSCOPY SCREENING] Kd Umaña Future Scheduled Test 2006 00:00:00 SHINGLES VACCINES (#1) [code = SHINGLES VACCINES (#1)] Kd Umaña Encounters Start Date/Time End Date/Time Encounter Type Admission Type Att[facility] Care Department Encounter ID Source 2019-11-16 00:00:00 2019-11-16 00:00:00 Outpatient JOYCE EWING MA [facility] [id number] Kd Umaña 2019-11-16 00:00:00 2019-11-16 00:00:00 Outpatient Sukhdev ROTHMAN [facility] [id number] Kd Umaña 2019-11-16 00:00:00 2019-11-16 00:00:00 Outpatient TOYA COOK [facility] [id number] [facility] 2019-11-16 00:00:00 2019-11-16 00:00:00 Outpatient JOYCE EWING MA [facility] [id number] [facility] 2019-06-05 00:00:00 2019-06-05 00:00:00 Outpatient JOYCE EWING MA [facility] [id number] [facility] 2019-05-25 00:00:00 2019-05-25 00:00:00 Outpatient ANKOMA-SEY, V ICTOR [facility] [id number] [facility] 2019-05-25 00:00:00 2019-05-25 00:00:00 Outpatient ANKOMA-SEY, V ICTOR [facility] [id number] [facility] 2019-03-30 13:06:00 2019-03-30 13:06:00 Outpatient [facility] [place] [id number] [facility] 2019-03-29 12:25:00 2019-03-29 12:25:[address] [facility] [id number] [facility] 2019-03-28 10:30:00 2019-03-28 10:30:00 Outpatient [facility] [place] [id number] [facility] 2017-08-05 13:49:00 2017-08-05 23:59:00 PAIN IN LEFT UPPER ARM 3 AMBEROLVIN Lacy JULIANA [facility], [address] [place] [address] [facility] [id number] [facility] ([facility]) 2017-07-26 14:37:00 2017-07-26 20:55:00 VIRAL INTESTINAL INFECTION UNSPEC 1 RADHASONIA JJ [facility], [address], [place], [place] [address] [facility] [id number] [facility] ([facility]) 2017-04-11 16:35:00 2017-04-11 21:40:00 UNS FX SHFT HUM LT ARM INIT CLOS FX E SONIA GARCIA [facility], [address] [facility], [place], [place] [address] [facility] [id number] [facility] ([facility]) Results Test Description Test Time Test Comments Results Result Comments Source CT ABDOMEN/PELVIS W 2020-02-01 18:40:00 [facility] [address] [address] Patient Name: STEPH PINK MR #: [id number] : 1955 Age/Sex: 64/M Req #: [id number] Adm Physician: Ordered by: Placido Perera MD Report #: [id number] Location: ER Room/Bed: Procedure: [id number] CT/CT ABDOMEN/PELVIS W Exam Date: 02/01/20 Exam [...] PERERA MD CHEST SINGLE (PORTABLE) 2020-02-01 17:50:[address] [address] Patient Name: STEPH PINK MR #: [id number] : 1955 Age/Sex: 64/M Req #: [id number] Adm Physician: Ordered by: Placido Perera MD Report #: [id number] Location: ER Room/Bed: Procedure: [id number] DX/CHEST SINGLE (PORTABLE) Exam Date: 02/01/20 Exam [...] - 11/17/2019 12:09 PM CDT Echocardiography Report [address] [address] Pat.Name: STEPH PINK Pat.ID: [id number] .Date: 11/16/2019 Refer.MD: FARTUN COOK MD Exam Time: 10:44:00 AM Study Type:Routine Echo Height: 72in Weight: 220lb BSA: 2.22 m2 Age: 4 1955,64Y Sex: MALE BP: 172/75 HR: 71 bpm Sonogrphr: RAGHAVENDRA Aragon, RVS Pat. Stat.:Outpatient Room: [facility] Study Status:Final Echo Event ID:[id number] Order ID: [id number] Reason for Study:Pre-Liver TransplantHistory / Clinical:Cirrhosis Procedures: [...] RAP of 5 mmHg. MEASUREMENTS: 2DParasternal [place] Ao An 2.5 cm LVPWd 1 cm [...] 83 msec Signed 11/17/2019 12:09 PMMoMD Kd Warren Taoist MRI Abdomen W Wo Contrast 2019-11-16 14:11:44 [...] can be followed. Technically LI RADS category 3.[id number] [facility] Echocardiogram complete w contrast and 3D if needed 2019-05-27 2 3:03:00 Interface, Radiology Results In - 05/27/2019 11:03 PM [facility] Echocardiography Report [id number]Name: STEPH PINK Pat.ID: [id number] .Date: 05/25/2019 Exam Time: 2:09:00 PM Study Type:Routine Echo Height: 72in Weight: 220lb BSA: 2.22 m2 Age: 4 1955,63Y Sex: MALE BP: 181/78 HR: 77 bpm Sonogrphr: RAGHAVENDRA Garcia Pat. Stat.:Outpatient Room: [facility] 26 Study Status:Final Echo Event ID:[id number] Order ID: [id number] Reason for Study:PRE LIVER EVAL History / [...] estimate PA systolic pressure. MEASUREMENTS:--------- 2DParasternal [place] Ao An 1.5 cm LVPWd 1.3 cm [...] Test Item POC creatinine (test code = 98124-9) 1.1 mg/dl 0.7-1.2 [employer]intering Plant Supervisor Name: Nataliya Helmice ID: [id number] Kd UmañaXR CHEST 2 PA [id number] 11:36:47PA and lateral chest:History: Persistent coughThere are [...] DARVIN CAVANAUGHDate: 03/20/2019 11:30MRI UPPER ARM W/O [id number] 14:34:34"If patient is claustrophobic, contact ordering ysician [...] By: DARVIN CAVANAUGHDate: 08/06/2017 14:34CT ABDOMEN/PELVIS W/O [id number] 20:20:52NPO 4 hours. Do not withhold meds [...] By: ESTRELLA SANCHEZ IADate: 07/26/2017 20:20URINALYSIS WITH [id number] 17:46:00* Test Item Value Reference Range Interpretation Comments Color (test code = UCOLR) Yellow Clarity (test code = UCLAR) Clear Glucose (test code = UGLUC) NEGATIVE NEGATIVE N Bilirubin (test code = UBILI) SMALL NEGATIVE A Ketones (test code = UKET) TRACE NEGATIVE A Specific [place] (test code = USPGR) >=1.030 1.005-1.030 A [...] MISC) Few Yeast None Seen A LIPASE, [id number] 15:53:00* Test Item Value Reference Range Interpretation Comments Lipase (test code = LIPA) 116 U/L 8-223 [id number] 15:53:00* Test Item Value Reference Range Interpretation [...] of chronic kidney failure. CBC WITH AUTO [id number] 15:49:00* Test Item Value Reference Range Interpretation [...] (test code = IG%) 0.1 % 0.0-0.4 [id number] 20:13:00* Test Item Value Reference Range Interpretation [...] management of chronic kidney failure. PT AND [id number] 20:13:00* Test Item Value Reference Range Interpretation Comments Protime (test code = PT) 11.6 seconds 9.0-11.8 INR (test code = INR) 1.1 0.9-1.1 INR re sults are intended ONLY to monitor Oral Anticoagulant therapy in stablized patients. The INR Therapeutic Range is 2.0 - 3.0 Patients with a mechanical heart, the INR Range is 2.5 - 3.5 [id number] 20:13:00* Test Item Value Reference Range Interpretation Comments aPTT (test code = PTT) 29.4 seconds 25.3-35.7 CBC WITH AUTO [id number] 20:03:00* Test Item Value Reference Range Interpretation [...] 0.4 % 0.0-0.4 XR HUMERUS MIN 2 [id number] 19:03:19Left humerus - 2 viewsHISTORY: Pain.COMPARISON: Left [...] Iris POOLEte: 04/11/2017 19:03XR HUMERUS MIN 2 [id number] 18:20:15 Left humerus - 2 viewsHISTORY: Pain.COMPARISON: [...]
[2020-02-01] MEDS: SODIUM CHLORIDE 0.9% 1000ML 1,000 ML IV SCH (20:20)
[2020-02-01] MEDS: METRONIDAZOLE 500MG/NS 100ML 100 ML IV SCH (20:20)
[2020-02-01] MEDS: MORPHINE SULFATE INJ 4 MG/ML INJ 1ML IV PRN (20:36)
[2020-02-01 21:30] VITALS: BP 161/81
--- NOTE | 2020-02-01 21:30 | NUR ---
Patient arrived on the floor to 295 as a new pt (from ED) with admitting diagnoses of abdominal pain, colitis, and partial SBO. Pt alert and oriented x3. Ambulatory in room prn. IVF (NS at 125ml/hr) infusing. Pt is NPO per MD order. Abdomen firm and distended. Pt has frequent and intermittent abdominal pain and will be medicated accordingly. Call king within reach. Will monitor pt closely.
[2020-02-01] MEDS ORDERED: PIPER-TAZ 3.375 GM / NS 50ML IV SCH (22:00)
[2020-02-01 22:43] LABS: BILIRUBIN,URINE SMALL (NEGATIVE); CLARITY,URINE CLEAR (CLEAR); COLOR,URINE YELLOW (YELLOW); KETONES,URINE 1+ (NEGATIVE); LEUKOCYTE ESTERASE ,URINE NEGATIVE (NEGATIVE); NITRITE,URINE NEGATIVE (NEGATIVE); PROTEIN,URINE DIPSTICK NEGATIVE (NEGATIVE); URINE UROBILINOGEN 4 mg/dL (0.2 - 1)
[2020-02-01 22:49] LABS: BACTERIA,URINE FEW /HPF; EPITHELIAL CELLS,URINE RARE /LPF; RBC,URINE 0-5 /HPF (0-5); WBC,URINE (MAN) 0-5 /HPF (0-5)
[2020-02-02] VITALS (8 sets, daily range): BP systolic 137–150; BP diastolic 58–79
--- NOTE | 2020-02-02 00:08 | NUR ---
Dr. Jorge Luis Suarez came and visited pt. MD spoke with patient and aware of patient's condition. stated we will wait on Dr. Siu's plan for patient today and go from there.
[2020-02-02] MEDS: ONDANSETRON HCL INJ 2MG/ML 2ML 2 MG/ML VIAL IV PRN ×5 (00:15→17:16)
[2020-02-02] MEDS: MORPHINE SULFATE INJ 4 MG/ML INJ 1ML IV PRN ×5 (00:15→17:16)
[2020-02-02] MEDS: METRONIDAZOLE 500MG/NS 100ML 100 ML IV SCH ×5 (00:20→23:29)
[2020-02-02] MEDS: PANTOPRAZOLE 40 MG 10ML VIAL IV SCH ×2 (01:00→14:00)
[2020-02-02] MEDS ORDERED: CARVEDILOL12.5 MG PO (01:11)
[2020-02-02] MEDS ORDERED: GABAPENTIN300 MG PO (01:11)
[2020-02-02] MEDS ORDERED: LOSARTAN POTASS25 MG PO (01:11)
[2020-02-02] MEDS ORDERED: TYLENOL EXTRA500 MG PO (01:11)
[2020-02-02] MEDS ORDERED: PIPER-TAZ 3.375 GM / NS 50ML IV SCH (02:00)
[2020-02-02] MEDS: SODIUM CHLORIDE 0.9% 1000ML 1,000 ML IV SCH ×2 (04:37→20:29)
[2020-02-02 05:04] LABS: BASOPHILS # (AUTO) 0.1 (0.0-0.1); BASOPHILS % 0.8 % (0.0-1.0); EOSINOPHILS # (AUTO) 0.3 (0.0-0.4); EOSINOPHILS % 2.8 % (0.0-6.0); HEMATOCRIT 38.1 % (38.2-49.6); HEMOGLOBIN 12.1 g/dL (14.0-18.0); LYMPHOCYTES # (AUTO) 2.4 (1.0-3.2); LYMPHOCYTES % 21.6 % (18.0-39.1); MEAN CORPUSCULAR HEMOGLOBIN 33.3 pg (28-32); MEAN CORPUSCULAR HGB CONC 31.8 g/dL (31-35); MONOCYTES # (AUTO) 0.8 (0.2-0.8); MONOCYTES % 6.6 % (4.4-11.3); NEUTROPHILS # (AUTO) 7.7 (2.1-6.9); NEUTROPHILS % 67.9 % (38.7-80.0); PLATELET COUNT 259 x10e3/uL (140-360); RED BLOOD COUNT 3.63 x10e6/uL (4.3-5.7); RED CELL DISTRIBUTION WIDTH 14.5 % (11.7-14.4)
[2020-02-02 05:16] LABS: INR 1.2; PROTHROMBIN TIME 15.8 seconds (11.9-14.5)
[2020-02-02 05:32] LABS: ALBUMIN/GLOBULIN RATIO 0.8 (0.8-2.0); ANION GAP 14.1 mmol/L (8-16); CALCIUM 8.7 mg/dL (8.4-10.2); CREATININE, SERUM 1.24 mg/dL (0.72-1.25); POTASSIUM 4.1 mmol/L (3.5-5.1)
--- NOTE | 2020-02-02 07:00 | NUR ---
RECEIVED BEDSIDE SHIFT REPORT WITH OFF GOING NIGHT NURSE. PATIENT IN STABLE CONDITION, NO S/S OF DISTRESS NOTED. RESPIRATIONS EVEN AND NONLABORED. PATIENT ABLE TO VOICE NEEDS. IV FLUIDS INFUSING, SITE ASYMPTOMATIC AND PATENT, TRANSPARENT DRESSING C/D/I. TELEMETRY APPLIED. BED IN LOWEST POSITION AND LOCKED, SIDE RAILS X 2, NONSKID SOCKS APPLIED. CALL LIGHT WITHIN REACH.
[2020-02-02] MEDS: PIPER-TAZ 3.375 GM 50 ML IV SCH ×2 (09:01→18:00)
--- NOTE | 2020-02-02 13:21 | Consultation ---
DATE OF CONSULTATION: 02/02/2020 HISTORY OF PRESENT ILLNESS: The patient is a 64-year-old male, who I have seen previously several years ago for perforated ulcer, now presents with abdominal pain and distention, which started a couple of days ago. He has had nausea, vomiting, says not passing any flatus or not had a bowel movement since yesterday. He has not had any definite fever. A CT of the abdomen and pelvis reveals thickening and inflammation involving the right colon. There is a midline ventral hernia containing small bowel. The small bowel is mildly dilated throughout. The patient has not had any definite fever. PAST MEDICAL HISTORY: Significant for cirrhosis of liver. He has had previous TIPS procedure. He had previous repair of perforated duodenal ulcer. History of hypertension, peripheral neuropathy, hepatitis C. ALLERGIES: HE HAS NO KNOWN ALLERGIES. MEDICATIONS: At home: 1. Carvedilol. 2. Gabapentin. 3. Lactulose. 4. Losartan. 5. Tylenol as needed. FAMILY HISTORY: Noncontributory. SOCIAL HISTORY: The patient smokes cigarettes one pack per day, occasionally drinks alcohol. REVIEW OF SYSTEMS: As stated above. He has had no fever, no weight loss. PHYSICAL EXAMINATION: GENERAL: The patient is awake and alert, in no distress. VITAL SIGNS: Heart rate at this time is around 120, the blood pressure is normal, he is afebrile. HEENT: The sclerae is not icteric. NECK: No masses. LUNGS: Equal breath sounds, clear bilaterally. CARDIAC: Regular rate and rhythm with no murmur. ABDOMEN: Distended and diffusely tender. There is a hernia in the midline, which is reducible, but tender. There is no organomegaly. EXTREMITIES: No edema. NEUROLOGIC: Grossly intact. LABORATORY DATA: White blood count on admission was 10.9, repeat is 11.3. There was mild left shift differential, hemoglobin 12, hematocrit 38. Chemistries, bilirubin 1.6 today, down from 2.0. Other liver function tests are normal. Bicarbonate level is 22. Lactic acid was initially 2.2 and repeat is normal. Lipase is normal. IMAGING: CT of the abdomen and pelvis revealed thickening of the right colon with surrounding inflammation, suggestive of colitis. There is mild distention in the small bowel, which appeared fluid filled with abdominal wall hernia present. Also, gallstones were seen. ASSESSMENT/PLAN: This is a 64-year-old male with abdominal pain with tenderness, findings most suggestive of colitis. At this point, recommend continue medical therapy with treatment of the underlying colitis. Once he improves, I think he would need a colonoscopy to ensure there is no underlying malignancy. He does have a hernia and do not think this is causing any obstruction and no intervention is needed at this time. Thank you for asking me to see Mr. Phillips. MD LOLA Hobbs/MODL /[id number]
[2020-02-02 17:10] LABS: FERRITIN 205.45 ng/mL (21.81-274.66)
--- NOTE | 2020-02-02 20:00 | NUR ---
COMPLETED BEDSIDE SHIFT REPORT AND ROUNDING WITH ONCOMING NIGHT NURSE. PATIENT IN STABLE CONDITION, NO S/S OF DISTRESS NOTED. RESPIRATIONS EVEN AND NONLABORED. PATIENT ABLE TO VOICE NEEDS. IV FLUIDS INFUSING, SITE ASYMPTOMATIC AND PATENT, TRANSPARENT DRESSING C/D/I. TELEMETRY APPLIED. BED IN LOWEST POSITION AND LOCKED, SIDE RAILS X 2, NONSKID SOCKS APPLIED. CALL LIGHT WITHIN REACH.
[2020-02-03] VITALS: BP 156/77
[2020-02-03] MEDS ORDERED: ACETAMINOPHEN 325 MG TAB PO PRN (00:15)
[2020-02-03] MEDS: PANTOPRAZOLE 40 MG 10ML VIAL IV SCH (00:16)
[2020-02-03] MEDS: MORPHINE SULFATE INJ 4 MG/ML INJ 1ML IV PRN (00:17)
[2020-02-03] MEDS: ONDANSETRON HCL INJ 2MG/ML 2ML 2 MG/ML VIAL IV PRN (00:17)
[2020-02-03 01:14] LABS: BASOPHILS # (AUTO) 0.1 (0.0-0.1); EOSINOPHILS # (AUTO) 0.3 (0.0-0.4); EOSINOPHILS % 3.8 % (0.0-6.0); HEMATOCRIT 34.4 % (38.2-49.6); HEMOGLOBIN 10.7 g/dL (14.0-18.0); LYMPHOCYTES # (AUTO) 2.3 (1.0-3.2); LYMPHOCYTES % 26.1 % (18.0-39.1); MEAN CORPUSCULAR HEMOGLOBIN 32.7 pg (28-32); MEAN CORPUSCULAR HGB CONC 31.1 g/dL (31-35); MEAN CORPUSCULAR VOLUME 105.2 fL (81-99); MONOCYTES # (AUTO) 0.9 (0.2-0.8); MONOCYTES % 10.6 % (4.4-11.3); NEUTROPHILS # (AUTO) 5.1 (2.1-6.9); NEUTROPHILS % 58.3 % (38.7-80.0); PLATELET COUNT 224 x10e3/uL (140-360); RED BLOOD COUNT 3.27 x10e6/uL (4.3-5.7); RED CELL DISTRIBUTION WIDTH 14.4 % (11.7-14.4)
[2020-02-03] MEDS: PIPER-TAZ 3.375 GM 50 ML IV SCH (02:00)
[2020-02-03 04:00] VITALS: BP 143/76
[2020-02-03] MEDS ORDERED: CITRATE OF MAGNESIA 300ML BOTTLE PO ONE ×2 (05:00)
--- NOTE | 2020-02-03 05:00 | NUR ---
Patient states he is checking himself out of the hospital. patient states he feels fine after taking the laxative. Risks of leaving the hospital have been explained to the patient. patient states he understands the risks. patient states he will follow up with his primary care physician in regards to having a colonoscopy. Patient has signed Against Medical Advice papers. IV has been discontinued, and telemetry box has been removed off of the patient. Covering attending physician notified of patient departing facility. Consulting physician paged. Awaiting call back.
[2020-02-03] MEDS ORDERED: IRON SUCROSE 100 MG in SODIUM CHLORIDE 0.9% 100 ML 100 ML IV SCH (09:00)
== END 2020-02-03 05:00 | disposition left against medical advice (07) | DRG 394 ==
LOC: ER 16:51 → ERHOLD 19:57 → MED/SURG3 21:39
PROVIDERS: ADMIT Internal Medicine; ATTEND Internal Medicine
DX: K42.0 Umbilical hernia with obstruction, without gangrene (principal); E87.2 Acidosis; K76.9 Liver disease, unspecified; K52.9 Noninfective gastroenteritis and colitis, unspecified; F17.200 Nicotine dependence, unspecified, uncomplicated; I10 Essential (primary) hypertension; G62.9 Polyneuropathy, unspecified; K74.60 Unspecified cirrhosis of liver; B19.20 Unspecified viral hepatitis C without hepatic coma; Z87.11 Personal history of peptic ulcer disease; Z11.59 Encounter for screening for other viral diseases
CPT/HCPCS: 36415; 71045; 74177; 80053; 81001; 82150; 82607; 82728; 82746; 83540; 83605; 83690; 84466; 85025; 85045; 85610; 87040; 99285; J1756; J2270; J2405; J2543; J7030; Q9967